=== PATIENT | female | born 1985 | race Caucasian/White ===

== ENCOUNTER 2016-06-09 09:08 | Emergency (ER) | payer OTHER ==
--- NOTE | 2016-06-09 09:54 | ED ---
General Adult HPI - General Chief complaint: Recheck/Abnormal Lab/Rx Stated complaint: post op drainage Time Seen by Provider: 06/09/16 09:31 Source: patient, RN notes reviewed Mode of arrival: ambulatory Limitations: no limitations - History of Present Illness Initial comments: 30-year-old female presenting emergency department with chief complaint of drainage from her section. Patient states that she noticed it yesterday. Patient states there is mild redness. Patient denies fever, chills , increased thumb pain. Patient has a nausea vomiting. Patient states that she was on Keflex stopped a few days ago which she was taken it for a UTI. Patient states her UTI was resistant so they called her in the new antibiotic though she has not received it. Patient states she is most receive a today. Patient denies any other complaints at this time. - Related Data Home Medications Medication Instructions Recorded Confirmed Mycophenolate Mofetil [Cellcept] 1,500 mg PO BID 01/31/14 03/11/15 predniSONE 20 mg PO DAILY 01/31/14 03/11/15 Doxycycline [Vibramycin] 50 mg PO Q12HR 03/11/15 03/11/15 Previous Rx's Medication Instructions Recorded Amoxicillin/Potassium Clav 1 each PO Q12HR #20 tab 03/11/15 [Augmentin 875-125 Tablet] Clindamycin HCl 300 mg PO Q6HR #40 cap 06/09/16 Allergies Allergy/AdvReac Type Severity Reaction Status Date / Time ciprofloxacin [From Cipro] Allergy Unknown Verified 06/09/16 09:28 sulfamethoxazole Allergy Unknown Verified 06/09/16 09:28 [From Bactrim] trimethoprim [From Bactrim] Allergy Unknown Verified 06/09/16 09:28 albuterol AdvReac Severe Rapid Verified 06/09/16 09:28 Heart Rate acetaminophen [From Tylenol] AdvReac Intermediate Unknown Verified 06/09/16 09: 28 morphine AdvReac Intermediate Unknown Verified 06/09/16 09:28 Review of Systems ROS Statement: Those systems with pertinent positive or pertinent negative responses have been documented in the HPI. ROS Other: All systems not noted in ROS Statement are negative. Past Medical History Past Medical History: Deep Vein Thrombosis (DVT) Additional Past Medical History / Comment(s): itp, spleen removed 2003, lupus History of Any Multi-Drug Resistant Organisms: None Reported Past Surgical History: Section Additional Past Surgical History / Comment(s): splenectomy mar 2004 Past Anesthesia/Blood Transfusion Reactions: No Reported Reaction Past Psychological History: ADD/ADHD, Depression Additional Psychological History / Comment(s): no doctors or meds. Smoking Status: Never smoker Past Alcohol Use History: None Reported Past Drug Use History: None Reported General Exam Limitations: no limitations General appearance: alert, in no apparent distress Head exam: Present: atraumatic, normocephalic, normal inspection Respiratory exam: Present: normal lung sounds bilaterally. Absent: respiratory distress, wheezes, rales, rhonchi, stridor Cardiovascular Exam: Present: regular rate, normal rhythm, normal heart sounds. Absent: systolic murmur, diastolic murmur, rubs, gallop, clicks GI/Abdominal exam: Present: soft, normal bowel sounds, other ( incision noted to have mild redness some drainage noted no dehiscence). Absent: distended, tenderness, guarding, rebound, rigid Course Vital Signs 06/09/16 09:26 Temperature 98.6 F Pulse Rate 90 Respiratory 20 Rate Blood Pressure 139/95 O2 Sat by Pulse 98 Oximetry Medical Decision Making - Medical Decision Making 30-year-old female presented for possible infection of section. Patient does have mild cellulitis. Patient be given clindamycin. Patient states she was taking Keflex but stopped it. She states symptoms started after stopping Keflex. Return parameters were discussed. Disposition Clinical Impression: section wound complication, Cellulitis Disposition: HOME SELF-CARE Condition: Stable Instructions: Cellulitis (ED) Additional Instructions: Please return to the Emergency Department if symptoms worsen or any other concerns. Prescriptions: Clindamycin HCl 300 mg PO Q6HR #40 cap Referrals: Fransico Albright DO [Primary Care Provider] - 1-2 days Time of Disposition: 09:53
[2016-06-09 10:12] VITALS: BP 115/67; PULSE 95; RESP 15; TEMP 97.2
== END 2016-06-09 10:14 | disposition home or self-care (01) ==
LOC: EC 09:08
DX: O86.0 Infection of obstetric surgical wound (principal); L03.311 Cellulitis of abdominal wall; Z88.2 Allergy status to sulfonamides; Z88.6 Allergy status to analgesic agent; Z88.5 Allergy status to narcotic agent; Z88.1 Allergy status to other antibiotic agents; Z79.52 Long term (current) use of systemic steroids
CPT/HCPCS: 99283

== ENCOUNTER → 2017-01-24 | Outpatient (CLI) | payer OTHER ==
[2017-01-24 12:39] LABS: ALT 33 U/L (9-52); AST 29 U/L (14-36); Alkaline Phosphatase 86 U/L (38-126); Anion Gap 10 mmol/L; Blood Urea Nitrogen 12 mg/dL (7-17); Calcium 9.1 mg/dL (8.4-10.2); Carbon Dioxide 23 mmol/L (22-30); Chloride 106 mmol/L (98-107); Cholesterol 174 mg/dL (<200); Glucose 79 mg/dL (74-99); HDL Cholesterol 41 mg/dL (40-60); Non-African American GFR(MDRD) >60 (>60 ml/min/1.73 sqM); Potassium 4.5 mmol/L (3.5-5.1); Sodium 139 mmol/L (137-145); Total Bilirubin 0.4 mg/dL (0.2-1.3); Total Protein 7.8 g/dL (6.3-8.2)
[2017-01-24 13:04] LABS: Basophils # (A) 0.1 k/uL (0-0.2); Basophils % (A) 1 %; CH 26.8; CHCM 29.3; Eosinophils # (A) 0.1 k/uL (0-0.7); Eosinophils % (A) 2 %; HCT 49.8 % (34.0-46.0); HGB 14.9 gm/dL (11.4-16.0); Hypochromasia Marked; Luc # (Auto) 0.12; Luc % (Auto) 2; Lymphocytes # (A) 2.2 k/uL (1.0-4.8); Lymphocytes % (A) 34 %; MCH 27.4 pg (25.0-35.0); MCHC 29.8 g/dL (31.0-37.0); Mean Platelet Volume 7.7; Monocytes # (A) 0.4 k/uL (0-1.0); Monocytes % (A) 7 %; Neutrophils # (A) 3.6 k/uL (1.3-7.7); Neutrophils % (A) 55 %; RBC 5.42 m/uL (3.80-5.40); WBC 6.5 k/uL (3.8-10.6)
[2017-01-24 20:49] LABS: ANA w/Reflex to Titer POSITIVE (NEGATIVE)
== END | disposition home or self-care (01) ==
LOC: LABWHC1 11:42
PROVIDERS: ATTEND Family Medicine
DX: M32.10 Systemic lupus erythematosus, organ or system involvement unspecified (principal); E78.2 Mixed hyperlipidemia
CPT/HCPCS: 36415; 80053; 80061; 84443; 85025; 86038; 86039

== ENCOUNTER → 2018-01-14 | Outpatient (CLI) | payer OTHER ==
--- NOTE | 2018-01-14 13:16 | XR ---
Right shoulder HISTORY: Trauma and pain 3 views of the right shoulder Question some slight superior displacement of the distal clavicle relation to the acromion. Right rubi g apex as visualized is normal. Bone mineralization is normal. IMPRESSION: No fracture. Correlate for acromioclavicular separation.
--- NOTE | 2018-01-14 13:18 | XR ---
Thoracic spine HISTORY: Trauma and pain 3 views of the thoracic spine Thoracic vertebral bodies show preserved height, alignment, and bone mineralization. There is multile enzo spondylosis. Mild spinal curvature could be positional. Disc spaces are maintained. Surgical clip s present in the left upper quadrant. IMPRESSION: No acute fracture or subluxation.
--- NOTE | 2018-01-14 13:20 | XR ---
Cervical spine HISTORY: Trauma and pain 5 views of the cervical spine, correlation thoracic spine same date There is no evident foraminal encroachment. Cervical vertebral bodies show preserved height, alignmen t, and bone mineralization. Disc spaces are maintained. Loss of normal cervical lordosis could be due to muscle spasm. IMPRESSION: No acute fracture or subluxation.
--- NOTE | 2018-01-14 13:22 | XR ---
Right humerus HISTORY: Trauma and pain 2 views of the right humerus on 4 images correlated to right shoulder same date Bone mineralization, joint spaces and alignment are maintained. Question superior displacement of the distal clavicle in relation to the acromion. Right lung apex as visualized is normal. IMPRESSION: No fracture or dislocation is evident, additional findings above.
--- NOTE | 2018-01-14 13:23 | XR ---
Right wrist HISTORY: Trauma and pain 4 views of the right wrist Bone mineralization, joint spaces and alignment are maintained. Suspect some soft tissue swelling is present. IMPRESSION: No fracture or dislocation.
== END | disposition home or self-care (01) ==
LOC: LABWHC1 10:52
PROVIDERS: ATTEND Emergency Medicine
DX: S13.4XXA Sprain of ligaments of cervical spine, initial encounter (principal); S43.401A Unspecified sprain of right shoulder joint, initial encounter; S50.02XA Contusion of left elbow, initial encounter; S63.501A Unspecified sprain of right wrist, initial encounter; S23.3XXA Sprain of ligaments of thoracic spine, initial encounter; N91.2 Amenorrhea, unspecified
CPT/HCPCS: 72050; 72072; 81025

== ENCOUNTER → 2018-01-20 | Outpatient (CLI) | payer OTHER ==
--- NOTE | 2018-01-20 12:18 | XR ---
EXAMINATION TYPE: XR chest 2V DATE OF EXAM: 01/20/2018 COMPARISON: Chest x-ray April 01, 2017 HISTORY: Fall injury one week ago with pain. TECHNIQUE: Frontal and lateral views of the chest are obtained. FINDINGS: There is no focal air space opacity, pleural effusion, or pneumothorax seen. The cardiac silhouette size is stable and upper limits of normal. Suspect old fracture anterolateral left fifth r ib unchanged from prior. Surgical clips left upper quadrant are redemonstrated. IMPRESSION: No acute cardiopulmonary process. No significant change from prior.
== END | disposition home or self-care (01) ==
LOC: RADXRMAIN 11:59
PROVIDERS: ATTEND Emergency Medicine
DX: R07.89 Other chest pain (principal); S29.9XXD Unspecified injury of thorax, subsequent encounter
CPT/HCPCS: 71046

== ENCOUNTER → 2018-02-13 | Outpatient (CLI) | payer OTHER ==
--- NOTE | 2018-02-13 23:39 | MR ---
EXAMINATION TYPE: MR shoulder RT wo con DATE OF EXAM: 02/13/2018 COMPARISON: None HISTORY: Pain in right shoulder TECHNIQUE: Multiplanar, multisequence imaging of the right shoulder is performed without contrast. FINDINGS: There is slight thickening and increased signal in the supraspinatus tendon over the humeral head and greater tuberosity of the humerus. I see no subacromial impingement. There is mild shoulder joint ef fusion. Biceps tendon appears intact. Subscapularis tendon is intact. There is no evidence of a fracture. The glenoid jolene appear intact. I see no bony destructive process. IMPRESSION: Mild shoulder joint effusion. Mild edema in the supraspinatus tendon consistent with tendinitis. No f ull-thickness tear seen. No retraction.
== END ==
LOC: RADMRIMAIN 07:24
PROVIDERS: ATTEND Family Medicine
DX: M25.411 Effusion, right shoulder (principal)

== ENCOUNTER 2018-09-24 08:13 | Emergency (ER) | payer OTHER ==
[2018-09-24 08:18] VITALS: BP 139/95; PULSE 77; RESP 18; TEMP 97.9
[2018-09-24] MEDS ORDERED: ACET/COD 300 MG/30 MG STARTER PACK 6 TAB BTL PO STA (08:46)
[2018-09-24] MEDS ORDERED: CLINDAMYCIN 150 MG CAP PO STA (08:46)
--- NOTE | 2018-09-24 08:46 | ED ---
ENT HPI - General Chief complaint: Dental/Oral Stated complaint: dental pain Time Seen by Provider: 09/24/18 08:20 Source: patient, RN notes reviewed, old records reviewed Mode of arrival: ambulatory Limitations: no limitations - History of Present Illness Initial comments: Patient is a 33-year-old female presents emergency department today for evaluati on of left-sided lower dental pain. Patient reports that she has history of poor dentition. She states she started to develop pain on . She went to urgent care and was started on Pen-Vee K on Saturday. She's been taking the antibiotics at that time. Patient states that she's continued have some pain and pain radiating down to her jaw which seems more severe than it was in the past. Patient states that she does not have a dentist at this time. She has a history of lupus, history of splenectomy. She denies any fevers or chills. She denies any difficulty breathing. - Related Data Home Medications Medication Instructions Recorded Confirmed Ibuprofen [Motrin Ib] 400 - 600 mg PO Q6H PRN 09/24/18 09/24/18 Previous Rx's Medication Instructions Recorded Amoxicillin/Potassium Clav 1 tab PO Q12HR #20 tab 04/01/17 [Augmentin 875-125 Tablet] Clindamycin [Cleocin] 450 mg PO TID 7 Days capsule 09/24/18 Allergies Allergy/AdvReac Type Severity Reaction Status Date / Time ciprofloxacin [From Cipro] Allergy Unknown Verified 09/24/18 08:33 sulfamethoxazole Allergy Unknown Verified 09/24/18 08:33 [From Bactrim] trimethoprim [From Bactrim] Allergy Unknown Verified 09/24/18 08:33 albuterol AdvReac Severe Rapid Verified 09/24/18 08:33 Heart Rate acetaminophen [From Tylenol] AdvReac Intermediate Unknown Verified 09/24/18 08:33 morphine AdvReac Intermediate Unknown Verified 09/24/18 08:33 Review of Systems ROS Statement: Those systems with pertinent positive or pertinent negative responses have been documented in the HPI. ROS Other: All systems not noted in ROS Statement are negative. Past Medical History Past Medical History: Deep Vein Thrombosis (DVT) Additional Past Medical History / Comment(s): itp, spleen removed 2003, lupus History of Any Multi-Drug Resistant Organisms: None Reported Past Surgical History: Section Additional Past Surgical History / Comment(s): splenectomy mar 2004 Past Anesthesia/Blood Transfusion Reactions: No Reported Reaction Past Psychological History: ADD/ADHD, Depression Smoking Status: Never smoker Past Alcohol Use History: None Reported Past Drug Use History: None Reported General Exam - General Exam Comments Initial Comments: 33-year-old female. Alert and oriented 3. No significant distress. Limitations: no limitations General appearance: alert, in no apparent distress Head exam: Present: atraumatic, normocephalic, normal inspection Eye exam: Present: normal appearance, PERRL, EOMI. Absent: scleral icterus, conjunctival injection, periorbital swelling ENT exam: Present: normal exam, mucous membranes moist. Absent: normal oropharynx (Poor dentition. Patient has some minimal left cheek lower jaw swelling.) Neck exam: Present: normal inspection. Absent: tenderness, meningismus, lymphadenopathy Respiratory exam: Present: normal lung sounds bilaterally. Absent: respiratory distress, wheezes, rales, rhonchi, stridor Cardiovascular Exam: Present: regular rate, normal rhythm, normal heart sounds. Absent: systolic murmur, diastolic murmur, rubs, gallop, clicks GI/Abdominal exam: Present: soft, normal bowel sounds. Absent: distended, tenderness, guarding, rebound, rigid Extremities exam: Present: normal inspection, full ROM, normal capillary refill. Absent: tenderness, pedal edema, joint swelling, calf tenderness Back exam: Present: normal inspection Neurological exam: Present: alert, oriented X3, CN II-XII intact Psychiatric exam: Present: normal affect, normal mood Skin exam: Present: warm, dry, intact, normal color. Absent: rash Course Vital Signs 09/24/18 08:15 Temperature 97.9 F Pulse Rate 77 Respiratory 18 Rate Blood Pressure 139/95 O2 Sat by Pulse 95 Oximetry Medical Decision Making - Medical Decision Making Patient's a 33-year-old female presents emergency department today for evaluation for dental pain. Patient has evidence of poor dentition, she is some swelling of the left side of her jaw and cheek. She was no tongue protrusion, denies any fevers or chills. She has been on penicillin for the past 3 days. I discussed this time switching patient's antibiotic to clindamycin. I also discussed case with Dr. Valadez who is aware of patient's history of sple nectomy, recommends just changing the antibiotic at this time. Patient will be given dose of clindamycin emergency department. Discussed following up with dental clinic. Questions were answered. Disposition Clinical Impression: Dental abscess Disposition: HOME SELF-CARE Condition: Good Instructions (If sedation given, give patient instructions): Dental Abscess (ED) Additional Instructions: [facility] [address] [place] [address] [phone] (existing clients only) For new clients: [phone] 1st consult: $50 (includes Xrays) Usually 30% less then private dentist for visits after. [employer] Have to pay $50 for Xrays and rest is covered. [phone] Prescriptions: Clindamycin [Cleocin] 450 mg PO TID 7 Days capsule Is patient prescribed a controlled substance at d/c from ED?: No Referrals: Fransico Albright DO [Primary Care Provider] - 1-2 days Time of Disposition: 08:45
== END 2018-09-24 08:57 | disposition home or self-care (01) ==
LOC: EC 08:13
DX: K04.7 Periapical abscess without sinus (principal); Z90.49 Acquired absence of other specified parts of digestive tract; Z86.718 Personal history of other venous thrombosis and embolism; Z88.1 Allergy status to other antibiotic agents; Z88.2 Allergy status to sulfonamides; Z88.5 Allergy status to narcotic agent; Z88.8 Allergy status to other drugs, medicaments and biological substances
CPT/HCPCS: 99283

== ENCOUNTER → 2019-01-21 | Outpatient (CLI) | payer OTHER ==
--- NOTE | 2019-01-21 15:50 | XR ---
Lumbosacral spine HISTORY: Chronic low back pain 5 views of lumbosacral spine correlated to previous exam 02/01/2014 There is no evident spondylolysis spinal listhesis. Lumbar vertebral bodies show preserved height. Rolan ne mineralization is maintained. Disc spaces are stable. Surgical clips present in the left upper roc drant. Mild spinal curvature could be positional. IMPRESSION: Spinal curvature could be positional. Postop change.
== END | disposition home or self-care (01) ==
LOC: RADXRYALE 14:39
PROVIDERS: ATTEND Physician Assistant Medical
DX: M54.5 Low back pain (principal); Z98.890 Other specified postprocedural states
CPT/HCPCS: 72110

== ENCOUNTER → 2019-02-13 | Outpatient (CLI) | payer OTHER ==
--- NOTE | 2019-02-13 09:26 | US ---
EXAMINATION TYPE: US abdomen complete DATE OF EXAM: 02/13/2019 COMPARISON: NONE CLINICAL HISTORY: R10.30 lower abd pain R10.2 pelvic pain. Patient has Lupus. Hx of splenectomy. EXAM MEASUREMENTS: Liver Length: 13.6 cm Gallbladder Wall: 0.2 cm CBD: 0.2 cm Spleen: Surgically absent Right Kidney: 10.8 x 4.5 x 4.8 cm Left Kidney: 10.7 x 5.5 x 5.1 cm Morbidly obese patient. Study very limited and technically difficult. Pancreas: partially obscured by bowel gas Liver: unable to well penetrate, very limited visualization Gallbladder: wnl as seen, very limited visualization Evidence for sonographic Chaudhari's sign:no CBD: wnl Spleen: wnl Right Kidney: Inferior pole obscured by bowel gas, very limited visualization Left Kidney: Portion of superior and inferior pole obscured by bowel gas Upper IVC: dilated Abd Aorta: bifurcation obscured by bowel gas There is no evidence of cholelithiasis. Common bile duct is unremarkable. The visualized portions o f the pancreas are homogenous. The spleen is surgically absent. Kidneys are symmetric and free of hy dronephrosis. IMPRESSION: 1. Exam is limited secondary to patient body habitus with suboptimal visualization throughout, most n otably within the liver and pancreas. No sonographic evidence of cholelithiasis nor acute cholecystit is. Common the liver is hyperechoic and most commonly relates to hepatic steatosis. Correlate with li marible function tests. 2. Dilated inferior vena cava, correlate for fluid overload or right heart failure.
--- NOTE | 2019-02-13 09:46 | US ---
EXAMINATION TYPE: US pelvic complete DATE OF EXAM: 02/13/2019 COMPARISON: NONE CLINICAL HISTORY: R10.30 lower abd pain R10.2 pelvic pain. TECHNIQUE: Transabdominal (TA). Date of LMP: 02/08/19 EXAM MEASUREMENTS: Uterus: 7.7 x 2.8 x 3.6 cm Endometrial Stripe: 0.4 cm Right Ovary: 2.8 x 1.7 x 2.1 cm Left Ovary: 3.4 x 3.4 x 2.1 cm Morbidly obese patient. This slightly limits examination. 1. Uterus: Anteverted wnl 2. Endometrium: wnl 3. Right Ovary: wnl 4. Left Ovary: wnl 5. Bilateral Adnexa: wnl 6. Posterior cul-de-sac: wnl IMPRESSION: Unremarkable pelvic ultrasound. No endometrial thickening nor ovarian mass seen.
== END ==
LOC: RADUSWWP 07:48
PROVIDERS: ATTEND Family Medicine
DX: R10.30 Lower abdominal pain, unspecified (principal); R10.2 Pelvic and perineal pain
CPT/HCPCS: 76700; 76856

== ENCOUNTER 2019-05-21 07:51 | Emergency (ER) | payer OTHER ==
[2019-05-21 07:59] VITALS: BP 138/93; PULSE 64; TEMP 97.7
[2019-05-21] MEDS ORDERED: KETOROLAC 60 MG/2 ML VIAL IM STA (08:22)
[2019-05-21] MEDS ORDERED: CYCLOBENZAPRINE 10MG STARTER 3 TAB BTL PO STA (08:22)
--- NOTE | 2019-05-21 08:39 | XR ---
Left shoulder HISTORY: Left shoulder pain 3 views of the left shoulder Bone mineralization, joint spaces and alignment are maintained. No fracture or dislocation. IMPRESSION: Normal left shoulder.
--- NOTE | 2019-05-21 08:39 | XR ---
Cervical spine HISTORY: Left-sided neck strain 5 views cervical spine, correlation to previous exam 01/14/2018 Cervical vertebral bodies show preserved height, alignment, and bone mineralization. Disc spaces and prevertebral soft tissues are normal. No evident foraminal encroachment. IMPRESSION: Stable exam, no acute abnormality.
--- NOTE | 2019-05-21 08:47 | ED ---
Neck Injury/Pain HPI - General Chief Complaint: Neck Pain/Injury Stated Complaint: [facility] - neck/back pain Time Seen by Provider: 05/21/19 08:01 Mode of arrival: ambulatory Limitations: no limitations - History of Present Illness Initial Comments: [id number]-year-old female presenting today for chief complaint of dizziness, dark spots in vision bilaterally, nausea. Patient states that she has had dizziness especially with standing up or head movement. She states she feels as though the room is spinning. Patient denies feeling like she is going to pass out. Patient denies any chest pain or shortness of breath. Denies vision loss, curtaining, flashes of light or head trauma. Denies hearing loss tinnitus, posterior or symptoms or ear pain. Lower extremity swelling denies Denies cardiac history. Patient states this began 05/17/19, evaluated 05/19 at [facility] where plain CT wo contrast obtained (-). Labs unremarkable. EKG no acute findings. Patient remaining ROS (-). Upon arrival she appears well no acute distress. - Related Data Home Medications Medication Instructions Recorded Confirmed Ibuprofen [Motrin Ib] 400 - 600 mg PO Q6H PRN 09/24/18 09/24/18 Previous Rx's Medication Instructions Recorded Amoxicillin/Potassium Clav 1 tab PO Q12HR #20 tab 04/01/17 [Augmentin 875-125 Tablet] Clindamycin [Cleocin] 450 mg PO TID 7 Days capsule 09/24/18 Allergies Allergy/AdvReac Type Severity Reaction Status Date / Time ciprofloxacin [From Cipro] Allergy Unknown Verified 05/21/19 07:59 sulfamethoxazole Allergy Unknown Verified 05/21/19 07:59 [From Bactrim] trimethoprim [From Bactrim] Allergy Unknown Verified 05/21/19 07:59 albuterol AdvReac Severe Rapid Verified 05/21/19 07:59 Heart Rate acetaminophen [From Tylenol] AdvReac Intermediate Unknown Verified 05/21/19 07:59 morphine AdvReac Intermediate Unknown Verified 05/21/19 07:59 Review of Systems ROS Statement: Those systems with pertinent positive or pertinent negative responses have been documented in the HPI. ROS Other: All systems not noted in ROS Statement are negative. Past Medical History Past Medical History: Deep Vein Thrombosis (DVT) Additional Past Medical History / Comment(s): itp, spleen removed 2003, lupus History of Any Multi-Drug Resistant Organisms: None Reported Past Surgical History: Section Additional Past Surgical History / Comment(s): splenectomy mar 2004 Past Anesthesia/Blood Transfusion Reactions: No Reported Reaction Past Psychological History: ADD/ADHD, Anxiety, Depression Smoking Status: Never smoker Past Alcohol Use History: None Reported Past Drug Use History: None Reported General Exam - General Exam Comments Initial Comments: General: The patient is awake and alert, in no distress Eye: +3 mm pupils are equal, round and reactive to light, extra-ocular movements are intact. No nystagmus. There is normal conjunctiva bilaterally. No signs of icterus. No photophobia Ears, nose, mouth and throat: There are moist mucous membranes and no oral lesions. Oropharynx was not erythematous there is no tonsillar enlargement exudates or lesions. Uvula midline. Tympanic membranes are not erythematous or is no effusions bulging or retraction. No tenderness to palpation of the mastoid. No anterior cervical lymphadenopathy. Rhinorrhea, clear and bilateral nares. No tripoding, no drooling. Neck: The neck is supple, there is no tenderness or JVD. No nuchal rigidity Cardiovascular: There is a regular rate and rhythm. No murmur, rub or gallop is appreciated. Respiratory: Lungs are clear to auscultation, respirations are non-labored, breath sounds are equal. No wheezes, stridor, rales, or rhonchi. No retractions or abdominal breathing. Gastrointestinal: Soft, non-distended, non-tender abdomen without masses or organomegaly noted. There is no rebound or guarding present. Bowel sounds are unremarkable. Musculoskeletal: Normal ROM, no tenderness. Strength 5/5. Sensation intact. Radial pulses equal bilaterally 2+. Neurological: A&O x 3. CN II-XII intact, There are no obvious motor or sensory deficits. Coordination appears grossly intact. Speech appears normal, no muffling. Finger to nose, heel to call smooth and coordinated. gait without ataxia. Skin: Skin is warm and dry and no rashes or lesions are noted. No extremity edema Psychiatric: Cooperative Limitations: no limitations Course Vital Signs 05/21/19 05/21/19 07:56 08:58 Temperature 97.7 F Pulse Rate 64 Respiratory 19 20 Rate Blood Pressure 138/93 O2 Sat by Pulse 100 Oximetry Medical Decision Making - Medical Decision Making 33-year-old female presenting for dizziness. No nystagmus. Patient has no chest pain or shortness of breath. Chest x-ray no acute findings. EKG no acute findings. Troponin negative. Patient has no leukocytosis no epigastric symptoms tinnitus patient describes the pain sensation of the room spinning increases with standing up rotation of the head quickly. Patient had minimal improvement and meclizine she episode of vomiting secondary to the dizziness in the emergency department. This is patient's second emergency department visit with intractable with no improvement after medications. The patient for neurology evaluation. CT angiogram was obtained prior to admission revealing no acute process or abnormalities noted of the posterior circulation. I discussed the case in detail by attending provider Dr. Arreola who spoke with Dr Quach who was agreeable to admission neurology on consult patient is agreeable to admission - EKG Data EKG Comments: Ventricular rate 76 bpm, NH interval 150 ms, QRS duration 92ms, QTC 364/409 ms. Normal sinus normal EKG no ST elevation or depression. No evidence of the delta wave or Brugada syndrome. Disposition Clinical Impression: Neck muscle strain, Left shoulder pain Disposition: HOME SELF-CARE Condition: Good Instructions (If sedation given, give patient instructions): Cervical Strain (ED), R.I.C.E. Treatment (ED) Additional Instructions: Please use medication as discussed. Please follow-up with family doctor in the next 2 days. Please return to emergency room if the symptoms increase or worsen or for any other concerns. Is patient prescribed a controlled substance at d/c from ED?: No Referrals: Fransico Albright DO [Primary Care Provider] - 1-2 days Time of Disposition: 08:47
[2019-05-21 08:59] VITALS: RESP 20
== END 2019-05-21 08:58 | disposition home or self-care (01) ==
LOC: EC 07:51
DX: S16.1XXA Strain of muscle, fascia and tendon at neck level, initial encounter (principal); M25.512 Pain in left shoulder; R42 Dizziness and giddiness; R11.2 Nausea with vomiting, unspecified; Z88.1 Allergy status to other antibiotic agents; Z88.2 Allergy status to sulfonamides; Z88.5 Allergy status to narcotic agent; Z88.6 Allergy status to analgesic agent; Z88.8 Allergy status to other drugs, medicaments and biological substances; W20.8XXA Other cause of strike by thrown, projected or falling object, initial encounter; Y93.89 Activity, other specified; Y92.69 Other specified industrial and construction area as the place of occurrence of the external cause; Y99.0 Civilian activity done for income or pay
CPT/HCPCS: 72050; 73030; 99283; 96372; J1885

== ENCOUNTER → 2019-12-17 | Outpatient (CLI) | payer OTHER ==
[2019-12-17 10:41] LABS: Basophils % (A) 0 %; Eosinophils % (A) 0 %; HCT 44.6 % (34.0-46.0); HGB 13.5 gm/dL (11.4-16.0); Hypochromasia Slight; Lymphocytes # (A) 3.2 k/uL (1.0-4.8); Lymphocytes % (A) 31 %; MCH 27.5 pg (25.0-35.0); MCHC 30.4 g/dL (31.0-37.0); MCV 90.4 fL (80.0-100.0); Mean Platelet Volume 9.9; Monocytes # (A) 0.6 k/uL (0-1.0); Monocytes % (A) 6 %; Neutrophils # (A) 6.4 k/uL (1.3-7.7); Neutrophils % (A) 62 %; Platelet Count 259 k/uL (150-450); RBC 4.93 m/uL (3.80-5.40); RDW 13.4 % (11.5-15.5); WBC 10.4 k/uL (3.8-10.6)
[2019-12-17 16:27] LABS: African American GFR (CKD) 112.3 (60.0-200.0); Albumin 4.1 g/dL (3.80-4.90); Albumin/Globulin Ratio 1.52 (1.60-3.17); Anion Gap 12.3 mmol/L (4.00-12.00); Calcium 9.1 mg/dL (8.7-10.3); Carbon Dioxide 25.7 mmol/L (21.6-31.8); Globulin 2.7 g/dL (1.6-3.3); Non-African American GFR(CKD) 96.9 (60.0-200.0); Potassium 4.6 mmol/L (3.5-5.5); Total Bilirubin 0.2 mg/dL (0.3-1.2); Total Protein 6.8 g/dL (6.2-8.2)
[2019-12-17 17:07] LABS: Erythrocyte Sedimentation Rate 14 mm/Hr (0-20)
[2019-12-17 17:09] LABS: DNA Double-Stranded NEGATIVE (NEGATIVE)
== END | disposition home or self-care (01) ==
LOC: LABWHC1 08:17
PROVIDERS: ATTEND Physician Assistant Medical
DX: M32.9 Systemic lupus erythematosus, unspecified (principal); M25.50 Pain in unspecified joint; R60.9 Edema, unspecified
CPT/HCPCS: 36415; 80053; 85025; 85652; 86160; 86225

== ENCOUNTER 2020-06-24 08:00 | Emergency (ER) | payer OTHER ==
[2020-06-24 08:05] VITALS: PULSE 97; RESP 18; TEMP 97.7
[2020-06-24] MEDS ORDERED: PENICILLIN G BENZATHINE 1,200,000 UNIT/2 ML SYRINGE IM STA (08:16)
[2020-06-24] MEDS ORDERED: IBUPROFEN 600 MG TAB PO STA (08:20)
--- NOTE | 2020-06-24 08:20 | ED ---
General Adult HPI - General Chief complaint: Dental/Oral Stated complaint: Dental pain Time Seen by Provider: 06/24/20 08:08 Source: patient, RN notes reviewed Mode of arrival: ambulatory Limitations: no limitations - History of Present Illness Initial comments: Patient is a pleasant 35-year-old female presenting to the emergency Department with complaints of dental pain. Onset of symptoms was 2 days ago. Patient states she did see a emergency dentist yesterday and was started on antibiotics, amoxicillin. Patient has noticed some swelling today. No fever. No dyspnea. Patient is tolerating oral intake. Patient does have history of chronic poor dentition and dental problems. Patient requests work note. - Related Data Home Medications Medication Instructions Recorded Confirmed Ibuprofen [Motrin Ib] 400 - 600 mg PO Q6H PRN 09/24/18 09/24/18 Previous Rx's Medication Instructions Recorded Amoxicillin/Potassium Clav 1 tab PO Q12HR #20 tab 04/01/17 [Augmentin 875-125 Tablet] Clindamycin [Cleocin] 450 mg PO TID 7 Days capsule 09/24/18 Allergies Allergy/AdvReac Type Severity Reaction Status Date / Time ciprofloxacin [From Cipro] Allergy Unknown Verified 06/24/20 08:05 sulfamethoxazole Allergy Unknown Verified 06/24/20 08:05 [From Bactrim] trimethoprim [From Bactrim] Allergy Unknown Verified 06/24/20 08:05 albuterol AdvReac Severe Rapid Verified 06/24/20 08:05 Heart Rate acetaminophen [From Tylenol] AdvReac Intermediate Unknown Verified 06/24/20 08:05 morphine AdvReac Intermediate Unknown Verified 06/24/20 08:05 Review of Systems ROS Statement: Those systems with pertinent positive or pertinent negative responses have been documented in the HPI. ROS Other: All systems not noted in ROS Statement are negative. Constitutional: Denies: fever Eyes: Denies: eye pain ENT: Reports: as per HPI, dental pain. Denies: ear pain Respiratory: Denies: cough Cardiovascular: Denies: palpitations Endocrine: Denies: fatigue Gastrointestinal: Denies: abdominal pain Genitourinary: Denies: dysuria Musculoskeletal: Denies: back pain Skin: Denies: rash Past Medical History Past Medical History: Deep Vein Thrombosis (DVT) Additional Past Medical History / Comment(s): itp, spleen removed 2003, lupus History of Any Multi-Drug Resistant Organisms: None Reported Past Surgical History: Section Additional Past Surgical History / Comment(s): splenectomy mar 2004 Past Anesthesia/Blood Transfusion Reactions: No Reported Reaction Past Psychological History: ADD/ADHD, Anxiety, Depression Smoking Status: Never smoker Past Alcohol Use History: None Reported Past Drug Use History: None Reported General Exam Limitations: no limitations General appearance: alert, in no apparent distress Head exam: Present: normocephalic Eye exam: Present: normal appearance, PERRL ENT exam: Present: other (Poor dentition. Multiple missing teeth. No drainable abscess seen. Mild swelling right maxillary region.) Neck exam: Present: normal inspection Respiratory exam: Present: normal lung sounds bilaterally Cardiovascular Exam: Present: regular rate, normal rhythm Extremities exam: Present: normal inspection Neurological exam: Present: alert Psychiatric exam: Present: normal affect, normal mood Course Vital Signs 06/24/20 08:03 Temperature 97.7 F Pulse Rate 97 Respiratory 18 Rate Blood Pressure 182/96 O2 Sat by Pulse 99 Oximetry Disposition Clinical Impression: Dental abscess Disposition: HOME SELF-CARE Condition: Stable Instructions (If sedation given, give patient instructions): Dental Abscess (ED) Additional Instructions: Please follow-up with your dentist in the next day or 2 for recheck. Return for difficulty in breathing, not tolerating oral intake, increased swelling, fevers, worsening symptoms or other concerns. [id number] Motrin as needed. Continue antibiotics. Is patient prescribed a controlled substance at d/c from ED?: No Referrals: rFansico Albright DO [Primary Care Provider] - 1-2 days Time of Disposition: 08:18
[2020-06-24 09:12] VITALS: BP 165/89
== END 2020-06-24 08:55 | disposition home or self-care (01) ==
LOC: EC 08:00
DX: K04.7 Periapical abscess without sinus (principal); K08.89 Other specified disorders of teeth and supporting structures; Z88.1 Allergy status to other antibiotic agents; Z88.2 Allergy status to sulfonamides; Z88.5 Allergy status to narcotic agent; Z88.6 Allergy status to analgesic agent; Z88.8 Allergy status to other drugs, medicaments and biological substances; Z90.81 Acquired absence of spleen
CPT/HCPCS: 99282; 96372; J0561

== ENCOUNTER → 2020-08-24 | Outpatient (CLI) | payer OTHER ==
[2020-08-24 09:55] LABS: Appearance,Urine Clear (Clear); Bilirubin,Urine Negative (Negative); Blood,Urine Negative (Negative); Color,Urine Light Yellow; Glucose,Urine (UA) Negative (Negative); Ketones,Urine Negative (Negative); Leukocyte Esterase,Urine Negative (Negative); Nitrite,Urine Negative (Negative); PH, Urine 5.5 (5.0-8.0); Protein,Urine Negative (Negative); Specific Gravity,Urine 1.008 (1.001-1.035); Urobilinogen,Urine <2.0 mg/dL (<2.0)
[2020-08-24 11:01] LABS: Basophils # (A) 0.05 X 10*3/uL (0.00-0.10); Basophils % (A) 0.5 %; Eosinophils # (A) 0.24 X 10*3/uL (0.04-0.35); Eosinophils % (A) 2.3 %; HCT 45.3 % (37.2-46.3); HGB 13.8 g/dL (12.0-15.0); Lymphocytes # (A) 4.14 X 10*3/uL (0.90-5.00); Lymphocytes % (A) 40.2 %; MCH 28.4 pg (27.0-32.0); MCHC 30.5 g/dL (32.0-37.0); MCV 93.2 fL (80.0-97.0); Mean Platelet Volume 10.7 fL (9.5-12.2); Monocytes # (A) 1.12 X 10*3/uL (0.20-1.00); Monocytes % (A) 10.9 %; Neutrophils # (A) 4.67 X 10*3/uL (1.80-7.70); Neutrophils % (A) 45.4 %; Platelet Count 332 X 10*3/uL (140-440); RBC 4.86 X 10*6/uL (4.10-5.20); RDW 14.7 % (11.5-14.5); WBC 10.29 X 10*3/uL (4.50-10.00)
[2020-08-24 12:46] LABS: African American GFR (CKD) 111.5 (60.0-200.0); Albumin 4.2 g/dL (3.80-4.90); Albumin/Globulin Ratio 1.62 (1.60-3.17); Anion Gap 8.9 mmol/L (4.00-12.00); BUN/Creat Ratio 23.75 Ratio (12.00-20.00); Calcium 9.2 mg/dL (8.7-10.3); Carbon Dioxide 27.1 mmol/L (21.6-31.8); Globulin 2.6 g/dL (1.6-3.3); Non-African American GFR(CKD) 96.2 (60.0-200.0); Total Bilirubin 0.2 mg/dL (0.2-1.2); Total Protein 6.8 g/dL (6.2-8.2)
[2020-08-24 16:05] LABS: DNA Double-Stranded NEGATIVE (NEGATIVE)
== END | disposition home or self-care (01) ==
LOC: LABWHC1 07:10
PROVIDERS: ATTEND Internal Medicine Rheumatology
DX: M32.9 Systemic lupus erythematosus, unspecified (principal)
CPT/HCPCS: 36415; 80053; 81003; 85025; 86160; 86225

== ENCOUNTER → 2020-11-29 | Outpatient (CLI) | payer OTHER ==
--- NOTE | 2020-11-29 11:35 | XR ---
EXAMINATION TYPE: XR lumbosacral spine min 4V DATE OF EXAM: 11/29/2020 Comparison: 01/21/2019 Clinical History: 35-year-old female low back pain after [id number] FALL Findings: Vertebral body heights are preserved and alignment is maintained. No pars interarticularis defect. Sl ight leftward truncal shift may be positional. Disc interspaces are maintained. Impression: 1. Leftward truncal shift may be positional or could represent muscle spasm. 2. No vertebral compression collapse or malalignment.
== END | disposition home or self-care (01) ==
LOC: RADXRYALE 10:55
PROVIDERS: ATTEND Family Medicine
DX: M54.5 Low back pain (principal)
CPT/HCPCS: 72110

== ENCOUNTER 2021-07-21 16:19 | Inpatient (IN) | payer OTHER ==
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
--- NOTE | 2021-07-21 20:57 | XR ---
EXAMINATION TYPE: XR KUB DATE OF EXAM: 07/21/2021 8:44 PM INDICATION: Patient age:Female; 36 years old; Reason for study: abdominal pain; COMPARISON: None. TECHNIQUE: One radiographic view of the abdomen was obtained. FINDINGS: Left upper quadrant surgical clips are present. The bowel gas pattern is nonspecific withou t dilated loops of small or large bowel. There is no evidence for organomegaly or pneumoperitoneum. The osseous structures are intact. No abnormal calcifications are present. Fecal material and gas ar e demonstrated throughout the colon and rectum. IMPRESSION: Nonspecific bowel gas pattern without radiographic evidence for acute process.
[2021-07-21 20:58] LABS: Basophils % (A) 0 %; Eosinophils # (A) 0.1 k/uL (0-0.7); Eosinophils % (A) 2 %; HCT 47.4 % (34.0-46.0); HGB 14.9 gm/dL (11.4-16.0); Lymphocytes % (A) 36 %; MCH 28.2 pg (25.0-35.0); MCHC 31.5 g/dL (31.0-37.0); MCV 89.5 fL (80.0-100.0); Mean Platelet Volume 8.3; Monocytes # (A) 0.5 k/uL (0-1.0); Monocytes % (A) 6 %; Neutrophils # (A) 4.5 k/uL (1.3-7.7); Neutrophils % (A) 54 %; Platelet Count 321 k/uL (150-450); RDW 13.8 % (11.5-15.5); WBC 8.3 k/uL (3.8-10.6)
[2021-07-21 21:06] LABS: Prothrombin Time 10.6 sec (9.0-12.0)
[2021-07-21 21:10] LABS: ALT 29 U/L (4-34); AST 34 U/L (14-36); African American GFR (CKD) >90 (>60 ml/min/1.73 sqM); Albumin 4.1 g/dL (3.5-5.0); Alkaline Phosphatase 78 U/L (38-126); Anion Gap 9 mmol/L; Blood Urea Nitrogen 16 mg/dL (7-17); Calcium 9.2 mg/dL (8.4-10.2); Carbon Dioxide 24 mmol/L (22-30); Chloride 106 mmol/L (98-107); Glucose 98 mg/dL (74-99); Non-African American GFR(CKD) >90 (>60 ml/min/1.73 sqM); Potassium 4.6 mmol/L (3.5-5.1); Sodium 139 mmol/L (137-145); Total Bilirubin 0.5 mg/dL (0.2-1.3); Total Protein 7.7 g/dL (6.3-8.2)
[2021-07-21 21:18] LABS: Partial Thromboplastin Time 21.6 sec (22.0-30.0)
[2021-07-21] MEDS ORDERED: NALOXONE 0.4 MG/ML 1 ML VIAL IV PRN (22:41)
[2021-07-21] MEDS ORDERED: ONDANSETRON 4 MG/2 ML VIAL IVP PRN (22:41)
--- NOTE | 2021-07-22 14:37 | CT ---
EXAMINATION TYPE: CT brain wo con DATE OF EXAM: 07/22/2021 COMPARISON: 07/21/2021 HISTORY: Intracranial bleed CT DLP: 1074.4 mGycm Automated exposure control for dose reduction was used. Ventricles have normal size. There is no mass effect or midline shift. There is no sign of intracrani al hemorrhage. The calvarium is intact. There is no evidence of cerebral edema. Skull base is intact. IMPRESSION: Negative unenhanced head CT scan. No change.
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
[2021-07-22] MEDS: traMADol 50 MG TAB PO PRN (17:50)
[2021-07-23] MEDS: traMADol 50 MG TAB PO PRN ×3 (00:12→22:23)
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
[2021-07-23] MEDS ORDERED: CITALOPRAM HYDROBROMIDE 20 MG TAB PO PRN (13:32)
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
[2021-07-24] MEDS: traMADol 50 MG TAB PO PRN ×2 (06:03→22:55)
[2021-07-24] MEDS ORDERED: LORazepam 2 MG/ML INJ IV STA (06:35)
[2021-07-24 08:11] LABS: Basophils # (A) 0.1 k/uL (0-0.2); Basophils % (A) 1 %; Eosinophils # (A) 0.1 k/uL (0-0.7); Eosinophils % (A) 2 %; HCT 49.2 % (34.0-46.0); HGB 15.2 gm/dL (11.4-16.0); Hypochromasia Slight; Lymphocytes # (A) 2.9 k/uL (1.0-4.8); Lymphocytes % (A) 36 %; MCH 28.6 pg (25.0-35.0); MCHC 30.9 g/dL (31.0-37.0); MCV 92.5 fL (80.0-100.0); Monocytes # (A) 0.5 k/uL (0-1.0); Monocytes % (A) 6 %; Neutrophils # (A) 4.4 k/uL (1.3-7.7); Neutrophils % (A) 54 %; Platelet Count 295 k/uL (150-450); RBC 5.32 m/uL (3.80-5.40); RDW 13.4 % (11.5-15.5); WBC 8.1 k/uL (3.8-10.6)
[2021-07-24] MEDS ORDERED: Acetaminophen-Codeine 300-30mg TAB PO PRN (08:34)
[2021-07-24 08:42] LABS: African American GFR (CKD) >90 (>60 ml/min/1.73 sqM); Anion Gap 7 mmol/L; Blood Urea Nitrogen 15 mg/dL (7-17); Carbon Dioxide 28 mmol/L (22-30); Chloride 104 mmol/L (98-107); Glucose 104 mg/dL (74-99); Non-African American GFR(CKD) >90 (>60 ml/min/1.73 sqM); Potassium 4.3 mmol/L (3.5-5.1); Sodium 139 mmol/L (137-145)
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
--- NOTE | 2021-07-24 15:59 | MR ---
EXAMINATION TYPE: MR brain wo/w con DATE OF EXAM: 07/24/2021 COMPARISON: CT brain from 2 days and 3 days ago. HISTORY: Headaches, possible bleed TECHNIQUE: Multiplanar, multisequence images of the brain and brainstem is performed without and with IV contras t, utilizing 15 mL intravenous Gadavist . FINDINGS: Diffusion weighted images demonstrate no evidence of a recent infarct or other diffusion ab normality. There is no extra-axial fluid collection or significant white matter signal abnormality. The ventricular system and cisternal spaces are normal in size and appearance. The brain volume is age appropriate. T2 Star weighted images show some artifact degradation, there is no convincing evide nce of significant intraparenchymal blood products. Midline structures demonstrate normal morphology. The craniocervical junction appears within normal limits. Post contrast images demonstrate no abnormal enhancement. The dural venous sinuses appear pa tent. The visualized sinuses are clear and the globes are intact. IMPRESSION: Unremarkable study.
[2021-07-25 08:12] VITALS: RESP 16
[2021-07-25] MEDS: traMADol 50 MG TAB PO PRN (11:18)
[2021-07-25 11:22] VITALS: BP 114/74; PULSE 85; TEMP 97.4
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
== END 2021-07-25 15:28 | disposition home or self-care (01) | DRG 89 ==
LOC: EC 16:19 → 3SCARD 23:34
PROVIDERS: ADMIT Hospitalist; ATTEND Hospitalist
DX: S06.0X0A Concussion without loss of consciousness, initial encounter (principal); Z68.42 Body mass index [BMI] 45.0-49.9, adult; Y99.0 Civilian activity done for income or pay; Y92.129 Unspecified place in nursing home as the place of occurrence of the external cause; M32.9 Systemic lupus erythematosus, unspecified; F41.9 Anxiety disorder, unspecified; F32.A Depression, unspecified; E66.01 Morbid (severe) obesity due to excess calories; M19.90 Unspecified osteoarthritis, unspecified site; Y04.2XXA Assault by strike against or bumped into by another person, initial encounter; F07.81 Postconcussional syndrome; Z79.899 Other long term (current) drug therapy; Z86.718 Personal history of other venous thrombosis and embolism; Z90.81 Acquired absence of spleen; Z88.1 Allergy status to other antibiotic agents; Z88.5 Allergy status to narcotic agent; Z88.2 Allergy status to sulfonamides; Z88.8 Allergy status to other drugs, medicaments and biological substances
CPT/HCPCS: 36415; 70450; 70553; 74018; 80048; 80053; 81025; 85025; 85610; 85730; 99285

== ENCOUNTER → 2021-07-27 | Outpatient (CLI) | payer OTHER ==
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
== END | disposition home or self-care (01) ==
LOC: RADUSWWP 15:11
PROVIDERS: ATTEND Emergency Medicine
DX: I82.433 Acute embolism and thrombosis of popliteal vein, bilateral (principal)
CPT/HCPCS: 93970

== ENCOUNTER → 2021-08-22 | Outpatient (CLI) | payer OTHER ==
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
== END | disposition home or self-care (01) ==
LOC: RADCTMAIN 14:14
PROVIDERS: ATTEND Emergency Medicine
DX: S19.9XXA Unspecified injury of neck, initial encounter (principal); M54.2 Cervicalgia; Y09 Assault by unspecified means
CPT/HCPCS: 72125

== ENCOUNTER → 2022-01-02 | Outpatient (CLI) | payer OTHER ==
--- NOTE | 2022-01-02 09:38 | US ---
EXAMINATION TYPE: US venous doppler duplex LE DATE OF EXAM: 01/02/2022 9:30 AM COMPARISON: US July 27 2021 CLINICAL HISTORY: I82.529 DVT. History of bilateral DVT, patient on blood thinners SIDE PERFORMED: Bilateral TECHNIQUE: The lower extremity deep venous system is examined utilizing real time linear array sonog lilo with graded compression, doppler sonography and color-flow sonography. VESSELS IMAGED: Common Femoral Vein Deep Femoral Vein Greater Saphenous Vein * Femoral Vein Popliteal Vein Small Saphenous Vein * Proximal Calf Veins (* superficial vessels) Difficult and limited study due to patient body habitus Right Leg: Appears negative for DVT Left Leg: Appears negative for DVT Grayscale, color doppler, spectral doppler imaging performed of the deep veins of the bilateral lower extremities. There is normal flow, compressibility, vascular waveforms. IMPRESSION: Suboptimal study but no ultrasound evidence for new or residual DVT in either lower extre mity.
== END | disposition home or self-care (01) ==
LOC: RADUSWWP 08:40
PROVIDERS: ATTEND Internal Medicine Hematology & Oncology
DX: I82.5Z9 Chronic embolism and thrombosis of unspecified deep veins of unspecified distal lower extremity (principal)
CPT/HCPCS: 93970

== ENCOUNTER → 2022-03-19 | Outpatient (CLI) | payer OTHER ==
[2022-03-19 18:58] LABS: ALT 21 U/L (8-44); AST 20 U/L (13-35); African American GFR (CKD) 128.5 (60.0-200.0); Albumin 4.2 g/dL (3.8-4.9); Albumin/Globulin Ratio 1.49 (1.60-3.17); Alkaline Phosphatase 80 U/L (41-126); BUN/Creat Ratio 24.05 Ratio (12.00-20.00); Calcium 9.6 mg/dL (8.7-10.3); Chloride 102 mmol/L (96-109); Globulin 2.8 g/dL (1.6-3.3); Glucose 89 mg/dL (70-110); Non-African American GFR(CKD) 110.9 (60.0-200.0); Potassium 4.5 mmol/L (3.5-5.5); Sodium 138 mmol/L (135-145); Total Bilirubin <0.15 mg/dL (0.30-1.20)
[2022-03-19 18:59] LABS: Thyroid Peroxidase Antibodies <9.0 U/mL (0.0-33.0)
== END | disposition home or self-care (01) ==
LOC: LABWHC1 13:29
PROVIDERS: ATTEND Internal Medicine Endocrinology, Diabetes & Metabolism
DX: E16.1 Other hypoglycemia (principal)
CPT/HCPCS: 36415; 80053; 82024; 82533; 83036; 84439; 84481; 86376

== ENCOUNTER → 2022-03-29 | Outpatient (CLI) | payer OTHER | END | disposition home or self-care (01) | LOC: LABWHC1 07:45 | PROVIDERS: ATTEND Internal Medicine Endocrinology, Diabetes & Metabolism | DX: E16.1 Other hypoglycemia (principal) | CPT/HCPCS: 36415; 82024; 82533 ==

== ENCOUNTER 2022-08-31 18:16 | Emergency (ER) | payer OTHER ==
[2022-08-31 19:13] VITALS: RESP 18; TEMP 98.1
[2022-08-31] MEDS ORDERED: methylPREDNISolone SOD SUCCI 125 MG/2 ML VIAL IV STA (20:55)
[2022-08-31] MEDS ORDERED: SODIUM CHLORIDE 0.9% 1,000 ML IV STA (20:57)
[2022-08-31] MEDS ORDERED: ALBUTEROL NEBULIZED 2.5 MG/3 ML INHALATION STA (20:57)
[2022-08-31 21:33] VITALS: BP 146/99
[2022-08-31 21:42] LABS: Basophils # (A) 0.1 k/uL (0-0.2); Basophils % (A) 1 %; Eosinophils # (A) 0.3 k/uL (0-0.7); Eosinophils % (A) 2 %; HGB 14.8 gm/dL (11.4-16.0); Hypochromasia Slight; Lymphocytes # (A) 4.3 k/uL (1.0-4.8); Lymphocytes % (A) 38 %; MCH 28.2 pg (25.0-35.0); MCHC 30.8 g/dL (31.0-37.0); MCV 91.3 fL (80.0-100.0); Mean Platelet Volume 8.3; Monocytes # (A) 0.8 k/uL (0-1.0); Monocytes % (A) 8 %; Neutrophils # (A) 5.6 k/uL (1.3-7.7); Neutrophils % (A) 50 %; Platelet Count 334 k/uL (150-450); RBC 5.26 m/uL (3.80-5.40); RDW 13.6 % (11.5-15.5); WBC 11.2 k/uL (3.8-10.6)
--- NOTE | 2022-08-31 21:42 | XR ---
EXAMINATION TYPE: XR chest 2V DATE OF EXAM: 08/31/2022 9:32 PM COMPARISON: Chest radiographs from 01/20/2018 TECHNIQUE: XR chest 2V Frontal and lateral views of the chest. CLINICAL INDICATION:Female, 37 years old with history of SOB; FINDINGS: Lungs/Pleura: There is no evidence of pleural effusion, focal consolidation, or pneumothorax. Pulmonary vascularity: Unremarkable. Heart/mediastinum: Cardiomediastinal silhouette is unremarkable. Musculoskeletal: No acute osseous pathology. IMPRESSION: No acute cardiopulmonary disease/process. No significant change from 01/20/2018
[2022-08-31 22:04] LABS: INR 0.9 (<1.2); Prothrombin Time 9.9 sec (9.0-12.0)
[2022-08-31 22:14] LABS: ALT 29 U/L (4-34); AST 27 U/L (14-36); African American GFR (CKD) >90 (>60 ml/min/1.73 sqM); Alkaline Phosphatase 71 U/L (38-126); Anion Gap 11 mmol/L; Blood Urea Nitrogen 19 mg/dL (7-17); Carbon Dioxide 28 mmol/L (22-30); Chloride 104 mmol/L (98-107); Glucose 81 mg/dL (74-99); Non-African American GFR(CKD) 89 (>60 ml/min/1.73 sqM); Partial Thromboplastin Time 21.2 sec (22.0-30.0); Potassium 4.2 mmol/L (3.5-5.1); Sodium 143 mmol/L (137-145); Total Bilirubin 0.4 mg/dL (0.2-1.3); Total Protein 7.4 g/dL (6.3-8.2)
--- NOTE | 2022-08-31 22:34 | ED ---
SOB HPI - General Chief Complaint: Shortness of Breath Stated Complaint: pneumonia Time Seen by Provider: 08/31/22 20:40 Source: patient Mode of arrival: ambulatory Limitations: no limitations - History of Present Illness Initial Comments: Patient is a 37 year old female who presents to the emergency department for shortness of breath. Patient has had upper respiratory symptoms for the past couple days including cough, runny nose, mild headache. Today she started to feel short of breath. She denies chest pain but states her chest feels tight. She is concerned she has pneumonia. Patient does have history of pulmonary embolism she is currently on Eliquis. She denies leg pain and swelling. No nausea or vomiting. Patient was at urgent care apparently her oxygen saturation was 95% she was sent in for further evaluation - Related Data Home Medications Medication Instructions Recorded Confirmed Ibuprofen [Motrin Ib] 800 mg PO Q6H PRN 09/24/18 07/27/21 Citalopram Hydrobromide [CeleXA] 20 mg PO DAILY PRN 07/21/21 07/27/21 traMADol HCL 50 mg PO TID PRN 07/21/21 07/27/21 Previous Rx's Medication Instructions Recorded Meclizine [Antivert] 12.5 mg PO TID PRN #12 tablet 07/25/21 Apixaban [Eliquis Starter Pack 5 - 10 mg PO DIRECTED 30 Days 07/29/21 (for VTE)] #1 each Ondansetron Odt [Zofran Odt] 4 mg PO Q8HR PRN #20 tab 07/29/21 methylPREDNISolone [Medrol Dose 4 mg PO DIRECTED #1 packet 08/31/22 Pack] Allergies Allergy/AdvReac Type Severity Reaction Status Date / Time albuterol Allergy Severe Rapid Verified 08/31/22 19:08 Heart Rate & Shortness of Breath acetaminophen [From Tylenol] AdvReac Intermediate Mood Verified 08/31/22 19:08 Swings, See comment morphine AdvReac Intermediate Mood Verified 08/31/22 19:08 Swings, See comment ciprofloxacin [From Cipro] AdvReac Reaction Verified 08/31/22 19:08 with lupus sulfamethoxazole AdvReac Reaction Verified 08/31/22 19:08 [From Bactrim] with lupus trimethoprim [From Bactrim] AdvReac Reaction Verified 05/05/23 19:08 with lupus Review of Systems ROS Statement: Those systems with pertinent positive or pertinent negative responses have been documented in the HPI. ROS Other: All systems not noted in ROS Statement are negative. Past Medical History Past Medical History: Deep Vein Thrombosis (DVT) Additional Past Medical History / Comment(s): itp, spleen removed 2003, lupus History of Any Multi-Drug Resistant Organisms: None Reported Past Surgical History: Section Additional Past Surgical History / Comment(s): splenectomy mar 2004, oral sx Past Anesthesia/Blood Transfusion Reactions: No Reported Reaction Past Psychological History: ADD/ADHD, Anxiety, Depression Smoking Status: Never smoker Past Alcohol Use History: None Reported Past Drug Use History: None Reported General Exam Limitations: no limitations General appearance: alert, in no apparent distress Head exam: Present: atraumatic, normocephalic, normal inspection Neck exam: Present: normal inspection. Absent: tenderness, meningismus, lymphadenopathy Respiratory exam: Present: wheezes (Moderate upper lung crowe). Absent: normal lung sounds bilaterally, respiratory distress, rales, rhonchi, stridor Cardiovascular Exam: Present: regular rate, normal rhythm, normal heart sounds. Absent: systolic murmur, diastolic murmur, rubs, gallop, clicks GI/Abdominal exam: Present: soft, normal bowel sounds. Absent: distended, tenderness, guarding, rebound, rigid Extremities exam: Present: normal inspection, full ROM, normal capillary refill. Absent: tenderness, calf tenderness Neurological exam: Present: alert, oriented X3, CN II-XII intact Psychiatric exam: Present: normal affect, normal mood Skin exam: Present: warm, dry, intact, normal color. Absent: rash Course Vital Signs 08/31/22 08/31/22 08/31/22 19:08 21:16 22:30 Temperature 98.1 F Pulse Rate 85 88 78 Respiratory 18 18 Rate Blood Pressure 140/81 146/99 O2 Sat by Pulse 98 98 Oximetry 08/31/22 22:39 Temperature Pulse Rate 83 Respiratory Rate Blood Pressure O2 Sat by Pulse Oximetry Medical Decision Making - Medical Decision Making EKG taken at 21:21, entered by oh Sinus rhythm, no ST segment or T-wave abnormality Ventricular rate 77, [place] interval 151, QRS duration 97, QTC 409 Was pt. sent in by a medical professional or institution (, PA, SENIOR COMMISSIONS ANALYST, urgent care, hospital, or correction...) When possible be specific @ -No Did you speak to anyone other than the patient for history (EMS, parent, family, police, friend...)? What history was obtained from this source @ -No Did you review nursing and triage notes (agree or disagree)? Why? @ -I reviewed and agree with nursing and triage notes Were old charts reviewed (outside hosp., previous admission, EMS record, old EKG, old radiological studies, urgent care reports/EKG's, correction records)? Report findings @ -No old charts were reviewed Differential Diagnosis (chest pain, altered mental status, abdominal pain women, abdominal pain men, vaginal bleeding, weakness, fever, dyspnea, syncope, headache, dizziness, GI bleed, back pain, seizure, CVA, palpatations, mental health)? @ -not applicable EKG interpreted by me (3pts min.). @ -As above X-rays interpreted by me (1pt min.). @ -Chest x-ray negative for acute process CT interpreted by me (1pt min.). @ -None done U/S interpreted by me (1pt. min.). @ -None done What testing was considered but not performed or refused? (CT, X-rays, U/S, labs)? Why? @ -None What meds were considered but not given or refused? Why? @ -None Did you discuss the management of the patient with other professionals (reynaldo pulido i.e. , PA, SENIOR COMMISSIONS ANALYST, lab, RT, psych nurse, aids social worker, ginger farmer, teacher, chief risk officer, caseworker)? Give summary @ -No Was smoking cessation discussed for >3mins.? @ -No Was critical care preformed (if so, how long)? @ -No Were there social determinants of health that impacted care today? How? (Homelessness, low income, unemployed, alcoholism, drug addiction, transportation, low edu. Level, literacy, decrease access to med. care, fdc, rehab)? @ -No Was there de-escalation of care discussed even if they declined (Discuss DNR or withdrawal of care, Hospice)? DNR status @ -No What co-morbidities impacted this encounter? (DM, HTN, Smoking, COPD, CAD, Cancer, CVA, ARF, Chemo, Hep., AIDS, mental health diagnosis, sleep apnea, morbid obesity)? @ -None Was patient admitted / discharged? Hospital course, mention meds given and route, prescriptions, significant lab abnormalities, going to OR and other pertinent info. @ -Patient presenting for shortness of breath. Patient resting comfortably no evidence of respiratory distress. No hypoxia. There is mild wheezing of the upper lung crowe. EKG reveals sinus rhythm there is no evidence of acute ischemia. Laboratory studies obtained. There is mild leukocytosis at 11.2. D- dimer and troponin are within normal limits. Chest x-ray negative for acute process. Patient observed closely she denied any hypoxic events in the emergency department. She was given breathing treatment and Solu-Medrol with improvement of wheezing. Results discussed with patient. Patient in stable medical condition for discharge. She will be discharged with Medrol Dosepak and continue breathing treatments at home. Undiagnosed new problem with uncertain prognosis? @ -No Drug Therapy requiring intensive monitoring for toxicity (Heparin, Nitro, Insulin, Cardizem)? @ -No Were any procedures done? @ -No Diagnosis/symptom? @ -Acute bronchitis Acute, or Chronic, or Acute on Chronic? @ -Acute Uncomplicated (without systemic symptoms) or Complicated (systemic symptoms)? @ -Uncomplicated Side effects of treatment? @ -No Exacerbation, Progression, or Severe Exacerbation? @ -[No] Poses a threat to life or bodily function? How? (Chest pain, [place], [place], pneumonia, PE, COPD, DKA, ARF, appy, cholecystitis, CVA, Diverticulitis, Homicidal, Suicidal, threat to staff... and all critical care pts) @ -No Dr. Espinoza is my attending - Lab Data Result diagrams: 08/31/22 21:16 08/31/22 21:16 Lab Results 08/31/22 08/31/22 08/31/22 Range/Units 21:16 21:16 21:16 WBC 11.2 H (3.8-10.6) k/uL RBC 5.26 (3.80-5.40) m/uL Hgb 14.8 (11.4-16.0) gm/dL Hct 48.0 H (34.0-46.0) % MCV 91.3 (80.0-100.0) fL MCH 28.2 (25.0-35.0) pg MCHC 30.8 L (31.0-37.0) g/dL RDW 13.6 (11.5-15.5) % Plt Count 334 (150-450) k/uL MPV 8.3 Neutrophils % 50 % Lymphocytes % 38 % Monocytes % 8 % Eosinophils % 2 % Basophils % 1 % Neutrophils # 5.6 (1.3-7.7) k/uL Lymphocytes # 4.3 (1.0-4.8) k/uL Monocytes # 0.8 (0-1.0) k/uL Eosinophils # 0.3 (0-0.7) k/uL Basophils # 0.1 (0-0.2) k/uL Hypochromasia Slight PT 9.9 (9.0-12.0) sec INR 0.9 (<1.2) APTT 21.2 L (22.0-30.0) sec D-Dimer <0.17 (<0.60) mg/L FEU Sodium 143 (137-145) mmol/L Potassium 4.2 (3.5-5.1) mmol/L Chloride 104 (98-107) mmol/L Carbon Dioxide 28 (22-30) mmol/L Anion Gap 11 mmol/L BUN 19 H (7-17) mg/dL Creatinine 0.85 (0.52-1.04) mg/dL Est GFR (CKD-EPI)AfAm >90 (>60 ml/min/1.73 sqM) Est GFR (CKD-EPI)NonAf 89 (>60 ml/min/1.73 sqM) Glucose 81 (74-99) mg/dL Calcium 9.0 (8.4-10.2) mg/dL Total Bilirubin 0.4 (0.2-1.3) mg/dL AST 27 (14-36) U/L ALT 29 (4-34) U/L Alkaline Phosphatase 71 (38-126) U/L Troponin I (0.000-0.034) ng/mL Total Protein 7.4 (6.3-8.2) g/dL Albumin 4.0 (3.5-5.0) g/dL 08/31/22 Range/Units 21:16 WBC (3.8-10.6) k/uL RBC (3.80-5.40) m/uL Hgb (11.4-16.0) gm/dL Hct (34.0-46.0) % MCV (80.0-100.0) fL MCH (25.0-35.0) pg MCHC (31.0-37.0) g/dL RDW (11.5-15.5) % Plt Count (150-450) k/uL MPV Neutrophils % % Lymphocytes % % Monocytes % % Eosinophils % % Basophils % % Neutrophils # (1.3-7.7) k/uL Lymphocytes # (1.0-4.8) k/uL Monocytes # (0-1.0) k/uL Eosinophils # (0-0.7) k/uL Basophils # (0-0.2) k/uL Hypochromasia PT (9.0-12.0) sec INR (<1.2) APTT (22.0-30.0) sec D-Dimer (<0.60) mg/L FEU Sodium (137-145) mmol/L Potassium (3.5-5.1) mmol/L Chloride (98-107) mmol/L Carbon Dioxide (22-30) mmol/L Anion Gap mmol/L BUN (7-17) mg/dL Creatinine (0.52-1.04) mg/dL Est GFR (CKD-EPI)AfAm (>60 ml/min/1.73 sqM) Est GFR (CKD-EPI)NonAf (>60 ml/min/1.73 sqM) Glucose (74-99) mg/dL Calcium (8.4-10.2) mg/dL Total Bilirubin (0.2-1.3) mg/dL AST (14-36) U/L ALT (4-34) U/L Alkaline Phosphatase (38-126) U/L Troponin I <0.012 (0.000-0.034) ng/mL Total Protein (6.3-8.2) g/dL Albumin (3.5-5.0) g/dL Disposition Clinical Impression: Acute bronchitis Disposition: HOME SELF-CARE Condition: Good Instructions (If sedation given, give patient instructions): Acute Bronchitis (ED) Additional Instructions: Continue breathing treatments and prednisone. Follow up with PCP in 1-2 days. Return to the ED if you experience new, concerning, or worsening symptoms. Prescriptions: methylPREDNISolone [Medrol Dose Pack] 4 mg PO DIRECTED #1 packet Is patient prescribed a controlled substance at d/c from ED?: No Referrals: Fransico Albright DO [Primary Care Provider] - 1-2 days
[2022-08-31 22:39] VITALS: PULSE 83
== END 2022-09-01 00:16 | disposition home or self-care (01) ==
LOC: EC 18:16
DX: J20.9 Acute bronchitis, unspecified (principal); F32.A Depression, unspecified; F41.9 Anxiety disorder, unspecified; Z79.899 Other long term (current) drug therapy; Z86.711 Personal history of pulmonary embolism; Z86.718 Personal history of other venous thrombosis and embolism; Z88.1 Allergy status to other antibiotic agents; Z88.2 Allergy status to sulfonamides; Z88.5 Allergy status to narcotic agent; Z88.6 Allergy status to analgesic agent; Z88.8 Allergy status to other drugs, medicaments and biological substances
CPT/HCPCS: 99285; 96374; 96361; 36415; 94640; 93005; 85379; 80053; 84484; 85025; 85610; 85730; 71046; J2930

== ENCOUNTER 2022-12-23 13:29 | Observation (INO) | payer OTHER ==
[2022-12-23] MEDS ORDERED: IPRATROPIUM-ALBUTEROL 3 ML NEB INHALATION STA (14:06)
[2022-12-23 14:26] LABS: Basophils # (A) 0.1 k/uL (0-0.2); Basophils % (A) 0 %; Eosinophils # (A) 0.1 k/uL (0-0.7); Eosinophils % (A) 1 %; HCT 47.2 % (34.0-46.0); HGB 15.1 gm/dL (11.4-16.0); Hypochromasia Slight; Lymphocytes # (A) 2.4 k/uL (1.0-4.8); Lymphocytes % (A) 18 %; MCHC 31.9 g/dL (31.0-37.0); MCV 90.7 fL (80.0-100.0); Mean Platelet Volume 8.2; Monocytes # (A) 0.4 k/uL (0-1.0); Monocytes % (A) 3 %; Neutrophils # (A) 10.1 k/uL (1.3-7.7); Neutrophils % (A) 77 %; Platelet Count 304 k/uL (150-450); RDW 13.9 % (11.5-15.5); WBC 13.1 k/uL (3.8-10.6)
--- NOTE | 2022-12-23 14:34 | ED ---
General Adult HPI - General Chief complaint: Shortness of Breath Stated complaint: CHEST PAIN,SOB Time Seen by Provider: 12/23/22 13:38 Source: patient Mode of arrival: ambulatory Limitations: no limitations - History of Present Illness Initial comments: Dictation was produced using [employer] dictation software. please excuse any grammatical, word or spelling errors. Chief Complaint: 37-year-old female presents to the ER for dyspnea History of Present Illness: Patient is 37-year-old female presents to the emergency room this patient is a history of lupus she takes lupus medications. Patient states that she's been symptomatic for approximately one week. States that she's been on a course of steroids however has not been improving her symptoms. Patient's history of asthma. Denies any chest pain. She has been having a nonproductive cough. No fever constitutional symptoms. The ROS documented in this emergency department record has been reviewed and confirmed by me. Those systems with pertinent positive or negative responses have been documented in the HPI. All other systems are other negative and/or noncontributory. - Related Data Home Medications Medication Instructions Recorded Confirmed Ibuprofen [Motrin Ib] 800 mg PO Q6H PRN 09/24/18 07/27/21 Citalopram Hydrobromide [CeleXA] 20 mg PO DAILY PRN 07/21/21 07/27/21 traMADol HCL 50 mg PO TID PRN 07/21/21 07/27/21 Previous Rx's Medication Instructions Recorded Meclizine [Antivert] 12.5 mg PO TID PRN #12 tablet 07/25/21 Apixaban [Eliquis Starter Pack 5 - 10 mg PO DIRECTED 30 Days 07/29/21 (for VTE)] #1 each Ondansetron Odt [Zofran Odt] 4 mg PO Q8HR PRN #20 tab 07/29/21 methylPREDNISolone [Medrol Dose 4 mg PO DIRECTED #1 packet 08/31/22 Pack] Allergies Allergy/AdvReac Type Severity Reaction Status Date / Time albuterol Allergy Severe Rapid Verified 12/23/22 13:32 Heart Rate & Shortness of Breath acetaminophen [From Tylenol] AdvReac Intermediate Mood Verified 12/23/22 13:32 Swings, See comment morphine AdvReac Intermediate Mood Verified 12/23/22 13:32 Swings, See comment ciprofloxacin [From Cipro] AdvReac Reaction Verified 12/23/22 13:32 with lupus sulfamethoxazole AdvReac Reaction Verified 12/23/22 13:32 [From Bactrim] with lupus trimethoprim [From Bactrim] AdvReac Reaction Verified 12/23/22 13:32 with lupus Review of Systems ROS Statement: Those systems with pertinent positive or pertinent negative responses have been documented in the HPI. ROS Other: All systems not noted in ROS Statement are negative. Past Medical History Past Medical History: Asthma, Deep Vein Thrombosis (DVT) Additional Past Medical History / Comment(s): itp, spleen removed 2003, lupus History of Any Multi-Drug Resistant Organisms: None Reported Past Surgical History: Section Additional Past Surgical History / Comment(s): splenectomy mar 2004, oral surgery Past Anesthesia/Blood Transfusion Reactions: No Reported Reaction Past Psychological History: ADD/ADHD, Anxiety, Depression Smoking Status: Never smoker Past Alcohol Use History: None Reported Past Drug Use History: None Reported General Exam - General Exam Comments Initial Comments: PHYSICAL EXAM: General Impression: Alert and oriented x3, not in acute distress HEENT: Normocephalic atraumatic, extra-ocular movements intact, pupils equal and reactive to light bilaterally, mucous membranes moist. Cardiovascular: Heart regular rate and rhythm Chest: Able to complete full sentences, no retractions, no tachypnea, diffuse wheezing throughout end expiratory phase Abdomen: abdomen soft, non-tender, non-distended, no organomegaly Musculoskeletal: Pulses present and equal in all extremities, no peripheral edema Motor: no focal deficits noted Neurological: CN II-XII grossly intact, no focal motor or sensory deficits noted Skin: Intact with no visualized rashes Psych: Normal affect and mood Limitations: no limitations Course Vital Signs 12/23/22 12/23/22 13:32 14:47 Temperature 98.1 F Pulse Rate 101 H 92 Respiratory 18 18 Rate Blood Pressure 116/71 129/89 O2 Sat by Pulse 95 95 Oximetry Medical Decision Making - Medical Decision Making Was pt. sent in by a medical professional or institution (, PA, SPARE HAND, urgent care, hospital, or shelter...) When possible be specific @ -No Did you speak to anyone other than the patient for history (EMS, parent, family, police, friend...)? What history was obtained from this source @ -No Did you review nursing and triage notes (agree or disagree)? Why? @ -I reviewed and agree with nursing and triage notes Were old charts reviewed (outside hosp., previous admission, EMS record, old EKG, old radiological studies, urgent care reports/EKG's, shelter records)? Report findings @ -No old charts were reviewed Differential Diagnosis (chest pain, altered mental status, abdominal pain women, abdominal pain men, vaginal bleeding, musculoskeletal, weakness, fever, dyspnea, syncope, headache, dizziness, GI bleed, back pain, seizure, CVA, palpatations, mental health)? @ -FDifferential Dyspnea: Coronary syndrome, arrhythmia, tamponade, asthma, COPD, pulmonary embolism, pneumonia, pneumothorax, pulmonary effusion, anaphylaxis, diabetic ketoacidosis, flailed chest, pulmonary contusion, diaphragmatic rupture, anemia, neuromuscular, this is not meant to be an all-inclusive list. EKG interpreted by me (3pts min.). @ -My EKG interpretation: Ventricular rate 11, sinus tachycardia,. 152, QRS 89, QTC 394. No DE prolongation, no QTC prolongation, no ST or T-wave changes noted. EKG compared to compared to 08/31/2022 showing no changes. Overall, this EKG is unremarkable X-rays interpreted by me (1pt min.). @ -Chest x-ray is unremarkable CT interpreted by me (1pt min.). @ -None done U/S interpreted by me (1pt. min.). @ -None done What testing was considered but not performed or refused? (CT, X-rays, U/S, labs)? Why? @ -None What meds were considered but not given or refused? Why? @ -None Did you discuss the management of the patient with other professionals (professionals i.e. , PA, SPARE HAND, lab, RT, psych nurse, professor of social work, education paraprofessional, teacher, parking regulation enforcement officer, wrapper caser)? Give summary @ -Cussed with hospitalist Dr. Fofana for admission Was smoking cessation discussed for >3mins.? @ -No Was critical care preformed (if so, how long)? @ -No Were there social determinants of health that impacted care today? How? (Homelessness, low income, unemployed, alcoholism, drug addiction, transpor tation, low edu. Level, literacy, decrease access to med. care, detention, rehab)? @ -No Was there de-escalation of care discussed even if they declined (Discuss DNR or withdrawal of care, Hospice)? DNR status @ -No What co-morbidities impacted this encounter? (DM, HTN, Smoking, COPD, CAD, Cancer, CVA, ARF, Chemo, Hep., AIDS, mental health diagnosis, sleep apnea, morbid obesity)? @ -None Was patient admitted / discharged? Hospital course, mention meds given and route, prescriptions, significant lab abnormalities, going to OR and other pertinent info. @ -37-year-old female presents emergency Department with persistent respiratory symptoms despite outpatient breathing treatment and steroids. Vital signs upon arrival are within acceptable limits. Patient had significant wheezing however she doesn't appear to be in significant acute distress. Laboratory evaluation unremarkable. X-rays negative. Disposition options were discussed patient she is agreeable for admission. Patient given breathing treatment and Decadron. Undiagnosed new problem with uncertain prognosis? @ -No Drug Therapy requiring intensive monitoring for toxicity (Heparin, Nitro, Insulin, Cardizem)? @ -No Were any procedures done? @ -No Diagnosis/symptom? Acute, or Chronic, or Acute on Chronic? Uncomplicated (without systemic symptoms) or Complicated (systemic symptoms)? @ -Asthma attack, failed outpatient treatment complicated lupus Side effects of treatment? @ -No Exacerbation, Progression, or Severe Exacerbation? @ -No Poses a threat to life or bodily function? How? (Chest pain, [place], [place], pneumonia, PE, COPD, DKA, ARF, appy, cholecystitis, CVA, Diverticulitis, Homicidal, Suicidal, threat to staff... and all critical care pts) @ -No - Lab Data Result diagrams: 12/23/22 14:18 12/23/22 14:18 Lab Results 12/23/22 12/23/22 12/23/22 Range/Units 14:18 14:18 14:18 WBC 13.1 H (3.8-10.6) k/uL RBC 5.20 (3.80-5.40) m/uL Hgb 15.1 (11.4-16.0) gm/dL Hct 47.2 H (34.0-46.0) % MCV 90.7 (80.0-100.0) fL MCH 29.0 (25.0-35.0) pg MCHC 31.9 (31.0-37.0) g/dL RDW 13.9 (11.5-15.5) % Plt Count 304 (150-450) k/uL MPV 8.2 Neutrophils % 77 % Lymphocytes % 18 % Monocytes % 3 % Eosinophils % 1 % Basophils % 0 % Neutrophils # 10.1 H (1.3-7.7) k/uL Lymphocytes # 2.4 (1.0-4.8) k/uL Monocytes # 0.4 (0-1.0) k/uL Eosinophils # 0.1 (0-0.7) k/uL Basophils # 0.1 (0-0.2) k/uL Hypochromasia Slight Sodium 139 (137-145) mmol/L Potassium 4.5 (3.5-5.1) mmol/L Chloride 103 (98-107) mmol/L Carbon Dioxide 29 (22-30) mmol/L Anion Gap 7 mmol/L BUN 13 (7-17) mg/dL Creatinine 0.77 (0.52-1.04) mg/dL Est GFR (CKD-EPI)AfAm >90 (>60 ml/min/1.73 sqM) Est GFR (CKD-EPI)NonAf >90 (>60 ml/min/1.73 sqM) Glucose 103 H (74-99) mg/dL Calcium 9.0 (8.4-10.2) mg/dL NT-Pro-B Natriuret Pep <20 pg/mL Influenza Type A (PCR) Not Detected (Not Detectd) Influenza Type B (PCR) Not Detected (Not Detectd) RSV (PCR) Not Detected (Not Detectd) SARS-CoV-2 (PCR) Not Detected (Not Detectd) Disposition Clinical Impression: Asthma attack Disposition: ADMITTED IP TO THIS HOSP Condition: Fair Referrals: Fransico Albright DO [Primary Care Provider] - 1-2 days Decision Time: 15:33
[2022-12-23 14:35] LABS: African American GFR (CKD) >90 (>60 ml/min/1.73 sqM); Anion Gap 7 mmol/L; Blood Urea Nitrogen 13 mg/dL (7-17); Carbon Dioxide 29 mmol/L (22-30); Chloride 103 mmol/L (98-107); Glucose 103 mg/dL (74-99); Non-African American GFR(CKD) >90 (>60 ml/min/1.73 sqM); Potassium 4.5 mmol/L (3.5-5.1); Sodium 139 mmol/L (137-145)
--- NOTE | 2022-12-23 14:43 | XR ---
EXAMINATION TYPE: XR chest 2V DATE OF EXAM: 12/23/2022 COMPARISON: 08/31/2022 HISTORY: Dyspnea TECHNIQUE: Frontal and lateral views of the chest are obtained. FINDINGS: There is no focal air space opacity, pleural effusion, or pneumothorax seen. The cardiac silhouette size is within normal limits. The osseous structures are intact. IMPRESSION: No acute cardiopulmonary process.
[2022-12-23 14:44] LABS: NT-Pro-B-Type Natriuretic Pept <20 pg/mL
[2022-12-23] MEDS ORDERED: NALOXONE 0.4 MG/ML 1 ML VIAL IVP PRN (15:28)
[2022-12-23] MEDS ORDERED: DEXAMETHASONE SOD PHOSPHATE 10 MG/ML 1 ML VIAL IV STA (15:32)
[2022-12-23] MEDS ORDERED: guaiFENesin-DM 600/30MG 1 EACH TAB.ER.12H PO PRN (16:13)
--- NOTE | 2022-12-23 16:17 | P.HPIM ---
History of Present Illness H&P Date: 12/23/22 Patient is a 37-year-old female with history of asthma and systemic lupus erythematosus, DVT/PE on anticoagulation, ITP status post splenectomy, ADHD, depression presenting with shortness of breath. She claims that her shortness of breath started 3 weeks ago, also accompanied by minimally productive cough, and wheezing. She went to her PCP and continued albuterol treatment as well as Mucinex. She then went to an urgent care clinic 1 week ago, and was treated with Augmentin and oral steroids as well as albuterol. There was no relief, hence, she decided to come to the hospital. She denies any fevers, chills, abdominal pain, nausea, vomiting, urinary or bowel complaints. She denies any new rashes. She denies any sick contacts are travel history. She has been compliant with her medications. She does have central chest pain that is sharp in nature, started after excessive coughing. In the ED, temperature was 98.1, pulse 101, respiratory rate 18, blood pressure 116/71, saturating at 95% on room air. Laboratory and also showed WBC 13.1, hemoglobin 15.1, platelet 304, sodium 139, potassium 4.5, creatinine 0.77, respiratory well panel negative. Chest x-ray personally interpreted, shows no acute process. Patient given IV Decadron, bronchodilators in the ED. She is being admitted for observation for asthma exacerbation. Pertinent positives and negatives as discussed in HPI, a complete review of systems was performed and all other systems are negative. Patient seen and examined at bedside. Vital signs reviewed General: nontoxic, no distress, appears at stated age, morbidly obese Derm: warm, dry Head: atraumatic, normocephalic, symmetric Eyes: EOMI, no lid lag, anicteric sclera, pupils equal round reactive to light ENT: Nose and ears atraumatic Neck: No thyromegaly, supple Mouth: no lip lesion, mucus membranes moist Cardiovascular: S1S2 reg, no murmur, no edema Lungs: Scattered wheezing, no accessory muscle use Abdominal: soft, nontender to palpation, no guarding, no appreciable organomegaly Ext: no gross muscle atrophy, muscle strength muscle strength 5 out of 5 in all 4 extremities, no contractures Neuro: CN II-XII grossly intact Psych: Alert, oriented, appropriate affect Assessment/Plan: Active: Asthma exacerbation Acute bronchitis -Bronchodilators, steroids -Pulmonology consult -Chest x-ray personally interpreted, shows no acute process -Also started on Mucinex DM -Sputum culture, pro-calcitonin ordered Chronic: History of systemic lupus erythematosus DVT/PE ITP status post splenectomy ADHD Depression -Restart all medications reconciled The patient is admitted with an anticipated less than 2 midnight stay as observation status for evaluation of asthma exacerbation. Surrogate decision-maker: Spouse CODE STATUS: Full code DVT prophylaxis: Eliquis Anticipated discharge date: Pending clinical course Anticipated discharge place: Pending clinical course A total of 55 minutes was spent on the care of this complex patient more than 50% of the time was spent in counseling and care coordination. Past Medical History Past Medical History: Asthma, Deep Vein Thrombosis (DVT) Additional Past Medical History / Comment(s): itp, spleen removed 2003, lupus History of Any Multi-Drug Resistant Organisms: None Reported Past Surgical History: Section Additional Past Surgical History / Comment(s): splenectomy mar 2004, oral surgery Past Anesthesia/Blood Transfusion Reactions: No Reported Reaction Past Psychological History: ADD/ADHD, Anxiety, Depression Smoking Status: Never smoker Past Alcohol Use History: None Reported Past Drug Use History: None Reported Medications and Allergies Home Medications Medication Instructions Recorded Confirmed Type Ibuprofen [Motrin Ib] 800 mg PO Q6H PRN 09/24/18 07/27/21 History Citalopram Hydrobromide [CeleXA] 20 mg PO DAILY PRN 07/21/21 07/27/21 History traMADol HCL 50 mg PO TID PRN 07/21/21 07/27/21 History Meclizine [Antivert] 12.5 mg PO TID PRN #12 tablet 07/25/21 07/27/21 Rx Apixaban [Eliquis Starter Pack 5 - 10 mg PO DIRECTED 30 Days 07/29/21 Rx (for VTE)] #1 each Ondansetron Odt [Zofran Odt] 4 mg PO Q8HR PRN #20 tab 07/29/21 Rx methylPREDNISolone [Medrol Dose 4 mg PO DIRECTED #1 packet 08/31/22 Rx Pack] Allergies Allergy/AdvReac Type Severity Reaction Status Date / Time albuterol Allergy Severe Rapid Verified 12/23/22 13:32 Heart Rate & Shortness of Breath acetaminophen [From Tylenol] AdvReac Intermediate Mood Verified 12/23/22 13:32 Swings, See comment morphine AdvReac Intermediate Mood Verified 12/23/22 13:32 Swings, See comment ciprofloxacin [From Cipro] AdvReac Reaction Verified 12/23/22 13:32 with lupus sulfamethoxazole AdvReac Reaction Verified 12/23/22 13:32 [From Bactrim] with lupus trimethoprim [From Bactrim] AdvReac Reaction Verified 12/23/22 13:32 with lupus Physical Exam Vitals: Vital Signs Temp Pulse Resp BP Pulse Ox 12/23/22 15:50 88 12/23/22 15:39 82 12/23/22 14:47 92 18 129/89 95 12/23/22 13:32 98.1 F 101 H 18 116/71 95 Intake and Output 12/23/22 12/23/22 12/23/22 06:59 14:59 22:59 Other: Weight 163.293 kg Results CBC & Chem 7: 12/23/22 14:18 12/23/22 14:18 Labs: Abnormal Lab Results - Last 24 Hours (Table) 12/23/22 12/23/22 Range/Units 14:18 14:18 WBC 13.1 H (3.8-10.6) k/uL Hct 47.2 H (34.0-46.0) % Neutrophils # 10.1 H (1.3-7.7) k/uL Glucose 103 H (74-99) mg/dL
[2022-12-23] MEDS: IPRATROPIUM-ALBUTEROL 3 ML NEB INHALATION SCH ×2 (17:19→21:30)
[2022-12-23 20:50] LABS: Glucose,Whole Blood 141 mg/dL (70-110)
[2022-12-23] MEDS: APIXABAN 5 MG TAB PO SCH (21:31)
[2022-12-23] MEDS: ACETAMINOPHEN TAB 325 MG TAB PO PRN (21:31)
[2022-12-24] MEDS: methylPREDNISolone SOD SUCCI 125 MG/2 ML VIAL IV SCH ×4 (00:29→23:24)
[2022-12-24] MEDS: ACETAMINOPHEN TAB 325 MG TAB PO PRN ×2 (02:00→22:21)
[2022-12-24 06:05] LABS: Glucose,Whole Blood 155 mg/dL (70-110)
[2022-12-24] MEDS: IPRATROPIUM-ALBUTEROL 3 ML NEB INHALATION SCH ×4 (07:54→18:42)
[2022-12-24] MEDS: APIXABAN 5 MG TAB PO SCH ×2 (10:11→22:18)
--- NOTE | 2022-12-24 11:50 | P.CNPUL ---
History of Present Illness Consult date: 12/24/22 Requesting physician: Braxton Fofana Reason for consult: dyspnea, pulmonary embolism Chief complaint: Shortness of breath History of present illness: This is a very pleasant 37-year-old female patient with a known history of systemic lupus erythematous maintained on Plaquenil, morbid obesity, previous pulmonary embolism, DVT anticoagulated with Eliquis, ITP status post splenectomy, attention deficit hyperactivity disorder, asthma. She had a two- week history of increasing shortness of breath, cough and congestion. She was using utilizing her nebulizer on Mucinex and Augmentin as prescribed without much improvement. She presented here to the emergency room yesterday. Chest x- ray showed no acute pulmonary process. White count 13.1. Hemoglobin 15.1. Platelets 304. Sodium 139. Potassium 4.5. Bicarb 29. BUN 13. Creatinine 0.77. Pro-calcitonin 0.03. Influenza screen negative. RSV screen negative. COVID-19 screen negative. She is seen today in consultation on the regular medical floor. Currently sitting up in bed. Awake and alert in no acute distress. Breathing quite a bit better today compared to yesterday. She was initiated on Solu-Medrol, DuoNeb inhalations, continued on Eliquis. Review of Systems REVIEW OF SYSTEMS: CONSTITUTIONAL: Denies any recent significant weight loss or weight gain. EYES: Denies change in vision. EARS, NOSE, MOUTH, THROAT: Denies headaches, denies sore throat. CARDIOVASCULAR: Denies chest pain, palpitations or syncopal episodes. RESPIRATORY: Positive for shortness of breath, cough, congestion no hemoptysis. GASTROINTESTINAL: Denies change in appetite, denies abdominal pain GENITOURINARY: Denies hematuria, denies infections. MUSKULOSKELETAL: Denies pain, denies swelling. INTEGUMENTARY: Denies rash, denies eczema. NEUROLOGICAL: Denies recent memory loss, no recent seizure activity. PSYCHIATRIC: Denies anxiety, denies depression. HEMATOLOGIC/LYMPHATIC: Denies anemia, denies enlarged lymph nodes. Past Medical History Past Medical History: Asthma, Deep Vein Thrombosis (DVT) Additional Past Medical History / Comment(s): itp, lupus, borderline DM History of Any Multi-Drug Resistant Organisms: None Reported Past Surgical History: Section Additional Past Surgical History / Comment(s): splenectomy mar 2004, oral surgery Past Anesthesia/Blood Transfusion Reactions: No Reported Reaction Past Psychological History: ADD/ADHD, Anxiety, Depression Additional Psychological History / Comment(s): states prn celexa Smoking Status: Never smoker Past Alcohol Use History: None Reported Past Drug Use History: None Reported Medications and Allergies Home Medications Medication Instructions Recorded Confirmed Type Citalopram Hydrobromide [CeleXA] 20 mg PO DAILY 07/21/21 12/23/22 History Albuterol Inhaler [Ventolin Hfa 2 puff INHALATION RT-Q6H PRN 12/23/22 12/23/22 History Inhaler] Albuterol Nebulized [Ventolin 2.5 mg INHALATION RT-QID PRN 12/23/22 12/23/22 History Nebulized] Amoxic-Pot Clav 875-125Mg 1 tab PO Q12HR 12/23/22 12/23/22 History [Augmentin 875-125] Apixaban [Eliquis] 2.5 mg PO BID 12/23/22 12/23/22 History Cetirizine HCl [Zyrtec] 10 mg PO DAILY PRN 12/23/22 12/23/22 History Hydroxychloroquine Sulfate 200 mg PO BID 12/23/22 12/23/22 History [Plaquenil] Allergies Allergy/AdvReac Type Severity Reaction Status Date / Time albuterol Allergy Severe Rapid Verified 12/23/22 13:32 Heart Rate & Shortness of Breath acetaminophen [From Tylenol] AdvReac Intermediate Mood Verified 12/23/22 13:32 Swings, See comment morphine AdvReac Intermediate Mood Verified 12/23/22 13:32 Swings, See comment ciprofloxacin [From Cipro] AdvReac Reaction Verified 12/23/22 13:32 with lupus sulfamethoxazole AdvReac Reaction Verified 12/23/22 13:32 [From Bactrim] with lupus trimethoprim [From Bactrim] AdvReac Reaction Verified 12/23/22 13:32 with lupus Physical Exam Vitals: Vital Signs Temp Pulse Pulse Resp BP BP Pulse Ox 12/24/22 11:01 89 12/24/22 10:48 87 12/24/22 08:06 85 12/24/22 07:54 84 12/24/22 07:00 98.0 F 76 16 131/83 94 L 12/24/22 00:29 98.3 F 67 15 133/70 97 12/23/22 21:50 80 12/23/22 21:31 76 12/23/22 18:33 98.1 F 80 16 122/82 98 12/23/22 18:00 86 18 124/69 94 L 12/23/22 16:00 88 18 126/87 94 L 12/23/22 15:50 88 12/23/22 15:39 82 12/23/22 14:47 92 18 129/89 95 12/23/22 13:32 98.1 F 101 H 18 116/71 95 Intake and Output 12/23/22 12/24/22 12/24/22 22:59 06:59 14:59 Other: # Voids 1 1 Weight 163.293 kg GENERAL EXAM: Alert, active, pleasant, morbidly obese 37-year-old female, on room air, comfortable in no apparent distress. HEAD: Normocephalic. EYES: Normal reaction of pupils, equal size. NOSE: Clear with pink turbinates. THROAT: No erythema or exudates. NECK: No masses, no JVD. CHEST: No chest wall deformity. LUNGS: Equal air entry with faint end expiratory wheeze. CVS: S1 and S2 normal with no audible murmur, regular rhythm. ABDOMEN: No hepatosplenomegaly, normal bowel sounds, no guarding or rigidity. SPINE: No scoliosis or deformity SKIN: No rashes CENTRAL NERVOUS SYSTEM: No focal deficits, tone is normal in all 4 extremities. EXTREMITIES: There is no peripheral edema. No clubbing, no cyanosis. Peripheral pulses are intact. Results - Laboratory Findings CBC and BMP: 12/23/22 14:18 12/23/22 14:18 Abnormal lab findings: Abnormal Labs 12/23/22 12/23/22 12/23/22 14:18 14:18 20:49 WBC 13.1 H Hct 47.2 H Neutrophils # 10.1 H Glucose 103 H POC Glucose (mg/dL) 141 H 12/24/22 06:03 WBC Hct Neutrophils # Glucose POC Glucose (mg/dL) 155 H - Diagnostic Findings Chest x-ray: image reviewed Assessment and Plan Assessment: Acute exacerbation of mild intermittent chronic bronchial asthma Systemic lupus erythematous, follows at the [facility], on Plaquenil Morbid obesity, BMI 48.8 kg/m History of previous pulmonary embolism/DVT, maintained on Eliquis History of ITP, status post splenectomy History of ADHD History of anxiety/depression Plan: The patient was seen and evaluated Chest x-ray, labs and medications reviewed Continue Solu-Medrol, DuoNeb inhalations Add Symbicort Procalcitonin within normal limits Stable and on room air Probable discharge in the a.m. We will continue to follow and make further recommendations based on her clinical status I have personally seen and examined the patient, performed the documentation and the assessment and plan as written. Number of minutes spent on the visit: 20.
[2022-12-24 12:06] LABS: Glucose,Whole Blood 171 mg/dL (70-110)
--- NOTE | 2022-12-24 14:36 | P.PN ---
Subjective Progress Note Date: 12/24/22 Hospital Course: 7-year-old female with history of asthma and systemic lupus erythematosus, DVT/PE on anticoagulation, ITP status post splenectomy, ADHD, depression presenting with shortness of breath. In the ED, temperature was 98.1, pulse 101, respiratory rate 18, blood pressure 116/71, saturating at 95% on room air. Laboratory and also showed WBC 13.1, hemoglobin 15.1, platelet 304, sodium 139, potassium 4.5, creatinine 0.77, respiratory well panel negative. Chest x-ray personally interpreted, shows no acute process. Patient given IV Decadron, bronchodilators in the ED. She is being admitted for observation for asthma exacerbation. Subjective: Patient seen and examined at bedside. No acute events overnight. Claims that her shortness of breath and cough has improved. Pertinent positives and negatives as discussed above, a complete review of systems was performed and all other systems are negative. Vitals Signs Reviewed. General: nontoxic, no distress, appears at stated age, morbidly obese Derm: warm, dry Head: atraumatic, normocephalic, symmetric Eyes: EOMI, no lid lag, anicteric sclera, pupils equal round reactive to light ENT: Nose and ears atraumatic Neck: No thyromegaly, supple Mouth: no lip lesion, mucus membranes moist Cardiovascular: S1S2 reg, no murmur, no edema Lungs: Scattered wheezing, no accessory muscle use Abdominal: soft, nontender to palpation, no guarding, no appreciable organomegaly Ext: no gross muscle atrophy, muscle strength muscle strength 5 out of 5 in all 4 extremities, no contractures Neuro: CN II-XII grossly intact Psych: Alert, oriented, appropriate affect Data Reviewed Today: Pertinent Labs: Pro-calcitonin negative, glucose range between 103-171 Imaging: No new imaging Assessment and Plan: Asthma exacerbation Acute bronchitis -Bronchodilators, steroids -Pulmonology note reviewed, Symbicort added likely discharge tomorrow -on Mucinex DM -pro-calcitonin negative Chronic: History of systemic lupus erythematosus DVT/PE ITP status post splenectomy ADHD Depression DVT ppx: Eliquis Code status: Full code Anticipated discharge place: Home Anticipated discharge time: Tomorrow Objective - Vital Signs Vital signs: Vital Signs Temp 98.0 F 12/24/22 07:00 Pulse 80 12/24/22 14:19 Resp 18 12/24/22 14:19 BP 119/77 12/24/22 14:19 Pulse Ox 97 12/24/22 14:19 FiO2 Intake & Output 12/23/22 12/24/22 12/24/22 18:59 06:59 18:59 Weight 163.293 kg Other: # Voids 1 2 - Labs CBC & Chem 7: 12/23/22 14:18 12/23/22 14:18 Labs: Abnormal Lab Results - Last 24 Hours (Table) 12/23/22 12/24/22 12/24/22 Range/Units 20:49 06:03 12:05 POC Glucose (mg/dL) 141 H 155 H 171 H (70-110) mg/dL
[2022-12-24 16:52] LABS: Glucose,Whole Blood 195 mg/dL (70-110)
[2022-12-24] MEDS: SYMBICORT 160-4.5 MCG INHALER INHALATION SCH (18:42)
[2022-12-24 20:27] LABS: Glucose,Whole Blood 201 mg/dL (70-110)
[2022-12-24] MEDS: HYDROXYCHLOROQUINE SULFATE 200 MG TAB PO SCH (22:18)
[2022-12-25 06:16] LABS: Glucose,Whole Blood 139 mg/dL (70-110)
[2022-12-25] MEDS: SYMBICORT 160-4.5 MCG INHALER INHALATION SCH (07:21)
[2022-12-25] MEDS: IPRATROPIUM-ALBUTEROL 3 ML NEB INHALATION SCH ×2 (07:21→11:14)
[2022-12-25 07:29] VITALS: BP 116/79; RESP 17; TEMP 98.1
[2022-12-25] MEDS ORDERED: CITALOPRAM HYDROBROMIDE 20 MG TAB PO SCH (09:00)
[2022-12-25] MEDS: methylPREDNISolone SOD SUCCI 125 MG/2 ML VIAL IV SCH (09:11)
[2022-12-25] MEDS: APIXABAN 5 MG TAB PO SCH (09:11)
[2022-12-25] MEDS: HYDROXYCHLOROQUINE SULFATE 200 MG TAB PO SCH (09:12)
[2022-12-25 11:23] VITALS: PULSE 85
--- NOTE | 2022-12-25 11:28 | P.PN ---
Subjective Progress Note Date: 12/25/22 This is a very pleasant 37-year-old female patient with a known history of systemic lupus erythematous maintained on Plaquenil, morbid obesity, previous pulmonary embolism, DVT anticoagulated with Eliquis, ITP status post splenectomy, attention deficit hyperactivity disorder, asthma. She had a two- week history of increasing shortness of breath, cough and congestion. She was using utilizing her nebulizer on Mucinex and Augmentin as prescribed without much improvement. She presented here to the emergency room yesterday. Chest x- ray showed no acute pulmonary process. White count 13.1. Hemoglobin 15.1. Platelets 304. Sodium 139. Potassium 4.5. Bicarb 29. BUN 13. Creatinine 0.77. Pro-calcitonin 0.03. Influenza screen negative. RSV screen negative. COVID-19 screen negative. She is seen today in consultation on the regular medical floor. Currently sitting up in bed. Awake and alert in no acute distress. Breathing quite a bit better today compared to yesterday. She was initiated on Solu-Medrol, DuoNeb inhalations, continued on Eliquis. The patient is seen today 12/25/2022 in follow-up on the regular medical floor. She is currently sitting up in bed. Awake and alert in no acute distress. No worsening shortness of breath, cough or congestion. She is maintaining good O2 saturations in the mid 90s on room air. Blood sugar 139. He is continued on DuoNeb inhalations, Symbicort, Solu-Medrol. Anticoagulated with Eliquis. Objective - Vital Signs Vital signs: Vital Signs Temp 98.1 F 12/25/22 07:00 Pulse 85 12/25/22 11:23 Resp 17 12/25/22 07:00 BP 116/79 12/25/22 07:00 Pulse Ox 94 L 12/25/22 07:00 FiO2 Intake & Output 12/24/22 12/25/22 12/25/22 18:59 06:59 18:59 Intake Total 236 118 Balance 236 118 Intake: Oral 236 118 Other: # Voids 2 2 - Exam GENERAL EXAM: Alert, morbidly obese 37-year-old female, on room air, comfortable in no apparent distress. HEAD: Normocephalic. EYES: Normal reaction of pupils, equal size. NOSE: Clear with pink turbinates. THROAT: No erythema or exudates. NECK: No masses, no JVD. CHEST: No chest wall deformity. LUNGS: Equal air entry with faint end expiratory wheeze. CVS: S1 and S2 normal with no audible murmur, regular rhythm. ABDOMEN: No hepatosplenomegaly, normal bowel sounds, no guarding or rigidity. SPINE: No scoliosis or deformity SKIN: No rashes CENTRAL NERVOUS SYSTEM: No focal deficits, tone is normal in all 4 extremities. EXTREMITIES: There is no peripheral edema. No clubbing, no cyanosis. Peripheral pulses are intact. - Labs CBC & Chem 7: 12/23/22 14:18 12/23/22 14:18 Labs: Abnormal Lab Results - Last 24 Hours (Table) 12/24/22 12/24/22 12/24/22 Range/Units 12:05 16:51 20:26 POC Glucose (mg/dL) 171 H 195 H 201 H (70-110) mg/dL 12/25/22 Range/Units 06:14 POC Glucose (mg/dL) 139 H (70-110) mg/dL Assessment and Plan Assessment: Acute exacerbation of mild intermittent chronic bronchial asthma Systemic lupus erythematous, follows at the [facility], on Plaquenil Morbid obesity, BMI 48.8 kg/m History of previous pulmonary embolism/DVT, maintained on Eliquis History of ITP, status post splenectomy History of ADHD History of anxiety/depression Plan: The patient was seen and evaluated Medications reviewed Stable and on room air Cleared for discharge from the pulmonary standpoint Continue Symbicort, albuterol HFA Complete a prednisone taper starting at 30 mg daily for 4 days Follow-up in our office in 1 week I have personally seen and examined the patient, performed the documentation and the assessment and plan as written. Number of minutes spent on the visit: 10.
[2022-12-25 12:02] LABS: Glucose,Whole Blood 118 mg/dL (70-110)
--- NOTE | 2022-12-25 12:59 | P.DS ---
Providers Date of admission: 12/23/22 15:29 Expected date of discharge: 12/25/22 Attending physician: Braxton Fofana MD Consults: 12/23/22 15:28 Consult Physician Routine Consulting Provider: Sayra Cordero Consult Reason/Comments: status asthmaticus Do you want consulting provider notified?: Yes Primary care physician: [facility] Course: 37-year-old female with history of asthma and systemic lupus erythematosus, DVT/PE on anticoagulation, ITP status post splenectomy, ADHD, depression presenting with shortness of breath. In the ED, temperature was 98.1, pulse 101, respiratory rate 18, blood pressure 116/71, saturating at 95% on room air. Laboratory and also showed WBC 13.1, hemoglobin 15.1, platelet 304, sodium 139, potassium 4.5, creatinine 0.77, respiratory well panel negative. Chest x-ray personally interpreted, shows no acute process. Patient given IV Decadron, bronchodilators in the ED. She is being admitted for observation for asthma ex acerbation. She was treated with Solu-Medrol and bronchodilators. Pulmonology was consulted and followed the patient during hospitalization. 12/25 Patient was seen and examined this morning. She reports improvement in her breathing since admission. States that she is comfortable being discharged home. She is advised to follow-up with her PCP within 1-2 days of discharge. Follow-up with pulmonology within 1 week of discharge. She does see a physician out of [facility] for her SLE. She has a nebulizer at home with solution. She'll be prescribed Symbicort and a prednisone taper on discharge. Pertinent studies include chest x-ray. General: nontoxic, no distress, appears at stated age, morbidly obese Derm: warm, dry Head: atraumatic, normocephalic, symmetric Eyes: EOMI, no lid lag, anicteric sclera ENT: Nose and ears atraumatic Cardiovascular: S1S2 reg, no murmur, no edema Lungs: Decreased breath sounds bilaterally, no accessory muscle use Ext: no gross muscle atrophy, muscle strength muscle strength 5 out of 5 in all 4 extremities, no contractures Psych: Alert, oriented, appropriate affect Discharge diagnosis: Asthma exacerbation Acute bronchitis This complex discharge took 35 minutes to complete. Patient Condition at Discharge: Stable Plan - Discharge Summary Discharge Rx Participant: Yes New Discharge Prescriptions: New predniSONE See Taper PO DIRECTED #18 tab Budesonide-Formot 160-4.5 Mcg [Symbicort 160-4.5 Mcg Inhaler] 2 puff INHALATION RT-BID #1 each Continue Hydroxychloroquine Sulfate [Plaquenil] 200 mg PO BID Albuterol Nebulized [Ventolin Nebulized] 2.5 mg INHALATION RT-QID PRN PRN Reason: Shortness Of Breath Albuterol Inhaler [Ventolin Hfa Inhaler] 2 puff INHALATION RT-Q6H PRN PRN Reason: Shortness Of Breath Citalopram Hydrobromide [CeleXA] 20 mg PO DAILY Apixaban [Eliquis] 2.5 mg PO BID Cetirizine HCl [Zyrtec] 10 mg PO DAILY PRN PRN Reason: Allergy Symptoms Discontinued Amoxic-Pot Clav 875-125Mg [Augmentin 875-125] 1 tab PO Q12HR Discharge Medication List Citalopram Hydrobromide [CeleXA] 20 mg PO DAILY 07/21/21 [History] Albuterol Inhaler [Ventolin Hfa Inhaler] 2 puff INHALATION RT-Q6H PRN 12/23/22 [History] Albuterol Nebulized [Ventolin Nebulized] 2.5 mg INHALATION RT-QID PRN 12/23/22 [History] Apixaban [Eliquis] 2.5 mg PO BID 12/23/22 [History] Cetirizine HCl [Zyrtec] 10 mg PO DAILY PRN 12/23/22 [History] Hydroxychloroquine Sulfate [Plaquenil] 200 mg PO BID 12/23/22 [History] Budesonide-Formot 160-4.5 Mcg [Symbicort 160-4.5 Mcg Inhaler] 2 puff INHALATION RT-BID #1 each 12/25/22 [Rx] predniSONE See Taper PO DIRECTED #18 tab 12/25/22 [Rx] Follow up Appointment(s)/Referral(s): Tamara Peraza MD [STAFF PHYSICIAN] - 1 Week Fransico Albright DO [Primary Care Provider] - 1-2 days Discharge Disposition: HOME SELF-CARE
== END 2022-12-25 13:45 | disposition home or self-care (01) ==
LOC: EC 13:29 → 6NMEDSUR 15:29
PROVIDERS: ADMIT Student in an Organized Health Care Education/Training Program; ATTEND Student in an Organized Health Care Education/Training Program
DX: J45.22 Mild intermittent asthma with status asthmaticus (principal); J44.0 Chronic obstructive pulmonary disease with (acute) lower respiratory infection; J20.9 Acute bronchitis, unspecified; M32.9 Systemic lupus erythematosus, unspecified; F90.9 Attention-deficit hyperactivity disorder, unspecified type; F31.9 Bipolar disorder, unspecified; E66.01 Morbid (severe) obesity due to excess calories; Z68.42 Body mass index [BMI] 45.0-49.9, adult; F41.9 Anxiety disorder, unspecified; Z86.718 Personal history of other venous thrombosis and embolism; Z86.711 Personal history of pulmonary embolism; Z86.2 Personal history of diseases of the blood and blood-forming organs and certain disorders involving the immune mechanism; Z79.01 Long term (current) use of anticoagulants; Z90.81 Acquired absence of spleen; Z79.899 Other long term (current) drug therapy; Z88.8 Allergy status to other drugs, medicaments and biological substances
CPT/HCPCS: 96376 ×2; 96375; 96374; 99285; 36415; 94640 ×5; 93005; 83880; 80048; 85025; 84145; 87636; 71046; G0378 ×3; J1100; J2930 ×2

== ENCOUNTER 2023-02-06 15:49 | Emergency (ER) | payer OTHER ==
--- NOTE | 2023-02-06 17:10 | XR ---
EXAMINATION TYPE: XR chest 2V DATE OF EXAM: 02/06/2023 4:52 PM CLINICAL INDICATION:Female, 37 years old with history of cough; COMPARISON: Chest radiographs from 12/23/2022 TECHNIQUE: XR chest 2V Frontal and lateral views of the chest. FINDINGS: Lungs/Pleura: There is no evidence of pleural effusion, focal consolidation, or pneumothorax. Pulmonary vascularity: Unremarkable. Heart/mediastinum: Cardiomediastinal silhouette is unremarkable. Musculoskeletal: No acute osseous pathology. Left upper quadrant clips. IMPRESSION: No acute cardiopulmonary disease/process.
[2023-02-06] MEDS ORDERED: SODIUM CHLORIDE 0.9% 1,000 ML IV STA (17:39)
[2023-02-06] MEDS ORDERED: KETOROLAC 15 MG/ML 1 ML VIAL IVP STA (17:39)
--- NOTE | 2023-02-06 17:41 | ED ---
General Adult HPI - General Chief complaint: Upper Respiratory Infection Stated complaint: SOB Source: patient Mode of arrival: ambulatory Limitations: no limitations - History of Present Illness Initial comments: 37-year-old female with a past medical history significant for asthma and lupus on Plaquenil presents to the ED with a chief complaint of URI symptoms. Patient states for the past 2 days has had cough, congestion, runny nose, postnasal drainage, headache, and shortness of breath with exertion. Also notes that she feels as if there is a "elephant on her chest" especially with exertion as well. Reports that she has been using [id number] medications with good relief of symptoms. Does report using both a nebulizer and inhaler with good relief of symptoms as well. Denies fever. Currently denies shortness of breath. No other complaints. - Related Data Home Medications Medication Instructions Recorded Confirmed Citalopram Hydrobromide [CeleXA] 20 mg PO DAILY 07/21/21 12/23/22 Albuterol Inhaler [Ventolin Hfa 2 puff INHALATION RT-Q6H PRN 12/23/22 12/23/22 Inhaler] Albuterol Nebulized [Ventolin 2.5 mg INHALATION RT-QID PRN 12/23/22 12/23/22 Nebulized] Apixaban [Eliquis] 2.5 mg PO BID 12/23/22 12/23/22 Cetirizine HCl [Zyrtec] 10 mg PO DAILY PRN 12/23/22 12/23/22 Hydroxychloroquine Sulfate 200 mg PO BID 12/23/22 12/23/22 [Plaquenil] Previous Rx's Medication Instructions Recorded Budesonide-Formot 160-4.5 Mcg 2 puff INHALATION RT-BID #1 each 12/25/22 [Symbicort 160-4.5 Mcg Inhaler] predniSONE See Taper PO DIRECTED #18 tab 12/25/22 Allergies Allergy/AdvReac Type Severity Reaction Status Date / Time albuterol Allergy Severe Rapid Verified 02/06/23 16:19 Heart Rate & Shortness of Breath acetaminophen [From Tylenol] AdvReac Intermediate Mood Verified 02/06/23 16:19 Swings, See comment morphine AdvReac Intermediate Mood Verified 02/06/23 16:19 Swings, See comment ciprofloxacin [From Cipro] AdvReac Reaction Verified 02/06/23 16:19 with lupus sulfamethoxazole AdvReac Reaction Verified 02/06/23 16:19 [From Bactrim] with lupus trimethoprim [From Bactrim] AdvReac Reaction Verified 02/06/23 16:19 with lupus Review of Systems ROS Statement: Those systems with pertinent positive or pertinent negative responses have been documented in the HPI. ROS Other: All systems not noted in ROS Statement are negative. Past Medical History Past Medical History: Asthma, Deep Vein Thrombosis (DVT) Additional Past Medical History / Comment(s): itp, lupus, borderline DM History of Any Multi-Drug Resistant Organisms: None Reported Past Surgical History: Section Additional Past Surgical History / Comment(s): splenectomy mar 2004, oral surgery Past Anesthesia/Blood Transfusion Reactions: No Reported Reaction Past Psychological History: ADD/ADHD, Anxiety, Depression Smoking Status: Never smoker Past Alcohol Use History: None Reported Past Drug Use History: None Reported General Exam Limitations: no limitations General appearance: alert, obese (Morbidly) Eye exam: Present: normal appearance Neck exam: Present: normal inspection Respiratory exam: Present: normal lung sounds bilaterally Cardiovascular Exam: Present: regular rate, normal rhythm Neurological exam: Present: alert, oriented X3 Skin exam: Present: warm, dry Course Vital Signs 02/06/23 02/06/23 16:15 18:55 Temperature 100.8 F H 98.9 F Pulse Rate 103 H 100 Respiratory 20 18 Rate Blood Pressure 125/84 113/70 O2 Sat by Pulse 96 95 Oximetry Medical Decision Making - Medical Decision Making Was pt. sent in by a medical professional or institution (, PA, SAP TECHNICAL ARCHITECT, urgent care, hospital, or residential...) When possible be specific @ -No Did you speak to anyone other than the patient for history (EMS, parent, family, police, friend...)? What history was obtained from this source @ -No Did you review nursing and triage notes (agree or disagree)? Why? @ -I reviewed and agree with nursing and triage notes Were old charts reviewed (outside hosp., previous admission, EMS record, old EKG, old radiological studies, urgent care reports/EKG's, residential records)? Report findings @ -No old charts were reviewed Differential Diagnosis (chest pain, altered mental status, abdominal pain women, abdominal pain men, vaginal bleeding, weakness, fever, dyspnea, syncope, headache, dizziness, GI bleed, back pain, seizure, CVA, palpatations, mental health, musculoskeletal)? @ -Differential Dyspnea: Coronary syndrome, arrhythmia, tamponade, asthma, COPD, pulmonary embolism, pneumonia, pneumothorax, pulmonary effusion, anaphylaxis, diabetic ketoacidosis, flailed chest, pulmonary contusion, diaphragmatic rupture, anemia, neuromuscular, this is not meant to be an all-inclusive list. Differential Chest Pain: Stable Angina, Unstable Angina, STEMI, NSTEMI Aortic Dissection, Pneumothorax, Musculoskeletal, Esophageal Spasm GERD, Cholecystitis, Pancreatitis, Zoster, this is not meant to be an all-inclusive list. EKG interpreted by me (3pts min.). @ -As above X-rays interpreted by me (1pt min.). @ -Chest x-ray interpreted by me show no evidence of pneumonia or other acute finding. CT interpreted by me (1pt min.). @ -None done U/S interpreted by me (1pt. min.). @ -None done What testing was considered but not performed or refused? (CT, X-rays, U/S, labs)? Why? @ -None What meds were considered but not given or refused? Why? @ -None Did you discuss the management of the patient with other professionals (professionals i.e. , PA, SAP TECHNICAL ARCHITECT, lab, RT, psych nurse, geriatric social worker, vehicle body maker, teacher, senior escrow officer, case filler)? Give summary @ -No Was smoking cessation discussed for >3mins.? @ -No Was critical care preformed (if so, how long)? @ -No Were there social determinants of health that impacted care today? How? (Homelessness, low income, unemployed, alcoholism, drug addiction, transportation, low edu. Level, literacy, decrease access to med. care, correction, rehab)? @ -No Was there de-escalation of care discussed even if they declined (Discuss DNR or withdrawal of care, Hospice)? DNR status @ -No What co-morbidities impacted this encounter? (DM, HTN, Smoking, COPD, CAD, Cancer, CVA, ARF, Chemo, Hep., AIDS, mental health diagnosis, sleep apnea, morbid obesity)? @ -Asthma, SLE Was patient admitted / discharged? Hospital course, mention meds given and route, prescriptions, significant lab abnormalities, going to OR and other pertinent info. @ -Discharge A 37-year-old female presents to the ED with upper respiratory symptoms and feeling of elephant on her chest for the past 2 days. Exam showed lungs were clear without any adventitious lung sounds. Chest x-ray showed no acute pro cess. Laboratory studies including CBC, CMP, UA, troponin 2 negative. EKG here showed a normal sinus rhythm without acute ST-T wave changes. During patient's stay here has not required any breathing treatments. Patient discharged home in stable condition. Discussed return cautions patient verb alizes agreement. Undiagnosed new problem with uncertain prognosis? @ -No Drug Therapy requiring intensive monitoring for toxicity (Heparin, Nitro, Insulin, Cardizem)? @ -No Were any procedures done? @ -No Diagnosis/symptom? @ -Viral URI Acute, or Chronic, or Acute on Chronic? @ -Acute Uncomplicated (without systemic symptoms) or Complicated (systemic symptoms)? @ -Uncomplicated Side effects of treatment? @ -No Exacerbation, Progression, or Severe Exacerbation? @ -No Poses a threat to life or bodily function? How? (Chest pain, [place], [place], pneumonia, PE, COPD, DKA, ARF, appy, cholecystitis, CVA, Diverticulitis, Homicidal, Suicidal, threat to staff... and all critical care pts) @ -No - Lab Data Result diagrams: 02/06/23 22:32 02/06/23 22:32 Lab Results 02/06/23 02/06/23 02/06/23 Range/Units 16:21 18:13 21:06 WBC (3.8-10.6) k/uL RBC (3.80-5.40) m/uL Hgb (11.4-16.0) gm/dL Hct (34.0-46.0) % MCV (80.0-100.0) fL MCH (25.0-35.0) pg MCHC (31.0-37.0) g/dL RDW (11.5-15.5) % Plt Count (150-450) k/uL MPV Neutrophils % % Lymphocytes % % Monocytes % % Eosinophils % % Basophils % % Neutrophils # (1.3-7.7) k/uL Lymphocytes # (1.0-4.8) k/uL Monocytes # (0-1.0) k/uL Eosinophils # (0-0.7) k/uL Basophils # (0-0.2) k/uL Sodium (137-145) mmol/L Potassium (3.5-5.1) mmol/L Chloride (98-107) mmol/L Carbon Dioxide (22-30) mmol/L Anion Gap mmol/L BUN (7-17) mg/dL Creatinine (0.52-1.04) mg/dL Est GFR (CKD-EPI)AfAm (>60 ml/min/1.73 sqM) Est GFR (CKD-EPI)NonAf (>60 ml/min/1.73 sqM) Glucose (74-99) mg/dL Calcium (8.4-10.2) mg/dL Total Bilirubin (0.2-1.3) mg/dL AST (14-36) U/L ALT (4-34) U/L Alkaline Phosphatase (38-126) U/L Troponin I <0.012 <0.012 (0.000-0.034) ng/mL Total Protein (6.3-8.2) g/dL Albumin (3.5-5.0) g/dL Influenza Type A (PCR) Not Detected (Not Detectd) Influenza Type B (PCR) Not Detected (Not Detectd) RSV (PCR) Not Detected (Not Detectd) SARS-CoV-2 (PCR) Not Detected (Not Detectd) 02/06/23 02/06/23 Range/Units 22:32 22:32 WBC 10.6 (3.8-10.6) k/uL RBC 4.90 (3.80-5.40) m/uL Hgb 14.3 (11.4-16.0) gm/dL Hct 43.9 (34.0-46.0) % MCV 89.5 (80.0-100.0) fL MCH 29.1 (25.0-35.0) pg MCHC 32.6 (31.0-37.0) g/dL RDW 13.3 (11.5-15.5) % Plt Count 252 (150-450) k/uL MPV 8.1 Neutrophils % 64 % Lymphocytes % 26 % Monocytes % 6 % Eosinophils % 1 % Basophils % 1 % Neutrophils # 6.8 (1.3-7.7) k/uL Lymphocytes # 2.7 (1.0-4.8) k/uL Monocytes # 0.6 (0-1.0) k/uL Eosinophils # 0.1 (0-0.7) k/uL Basophils # 0.1 (0-0.2) k/uL Sodium 138 (137-145) mmol/L Potassium 4.5 (3.5-5.1) mmol/L Chloride 105 (98-107) mmol/L Carbon Dioxide 23 (22-30) mmol/L Anion Gap 10 mmol/L BUN 9 (7-17) mg/dL Creatinine 0.87 (0.52-1.04) mg/dL Est GFR (CKD-EPI)AfAm >90 (>60 ml/min/1.73 sqM) Est GFR (CKD-EPI)NonAf 86 (>60 ml/min/1.73 sqM) Glucose 80 (74-99) mg/dL Calcium 8.3 L (8.4-10.2) mg/dL Total Bilirubin 0.5 (0.2-1.3) mg/dL AST 37 H (14-36) U/L ALT 24 (4-34) U/L Alkaline Phosphatase 53 (38-126) U/L Troponin I (0.000-0.034) ng/mL Total Protein 6.8 (6.3-8.2) g/dL Albumin 3.7 (3.5-5.0) g/dL Influenza Type A (PCR) (Not Detectd) Influenza Type B (PCR) (Not Detectd) RSV (PCR) (Not Detectd) SARS-CoV-2 (PCR) (Not Detectd) - EKG Data EKG Comments: EKG shows a sinus rhythm without acute ST or T-wave changes. 95 beats for minute. 148 OK interval, QRS 82, QT/QTc 328/381. Disposition Clinical Impression: Viral URI Disposition: HOME SELF-CARE Condition: Good Instructions (If sedation given, give patient instructions): Upper Respiratory Infection (ED) Additional Instructions: Please return to the Emergency Department if symptoms worsen or any other concerns. Is patient prescribed a controlled substance at d/c from ED?: No Referrals: Fransico Albright DO [Primary Care Provider] - 1-2 days Time of Disposition: 23:23
[2023-02-06 19:03] VITALS: BP 113/70; PULSE 100; RESP 18; TEMP 98.9
[2023-02-06 22:48] LABS: Basophils # (A) 0.1 k/uL (0-0.2); Basophils % (A) 1 %; Eosinophils # (A) 0.1 k/uL (0-0.7); Eosinophils % (A) 1 %; HCT 43.9 % (34.0-46.0); HGB 14.3 gm/dL (11.4-16.0); Lymphocytes # (A) 2.7 k/uL (1.0-4.8); Lymphocytes % (A) 26 %; MCH 29.1 pg (25.0-35.0); MCHC 32.6 g/dL (31.0-37.0); MCV 89.5 fL (80.0-100.0); Mean Platelet Volume 8.1; Monocytes # (A) 0.6 k/uL (0-1.0); Monocytes % (A) 6 %; Neutrophils # (A) 6.8 k/uL (1.3-7.7); Neutrophils % (A) 64 %; Platelet Count 252 k/uL (150-450); RDW 13.3 % (11.5-15.5); WBC 10.6 k/uL (3.8-10.6)
[2023-02-06 22:58] LABS: ALT 24 U/L (4-34); African American GFR (CKD) >90 (>60 ml/min/1.73 sqM); Albumin 3.7 g/dL (3.5-5.0); Anion Gap 10 mmol/L; Blood Urea Nitrogen 9 mg/dL (7-17); Calcium 8.3 mg/dL (8.4-10.2); Carbon Dioxide 23 mmol/L (22-30); Chloride 105 mmol/L (98-107); Glucose 80 mg/dL (74-99); Non-African American GFR(CKD) 86 (>60 ml/min/1.73 sqM); Sodium 138 mmol/L (137-145); Total Bilirubin 0.5 mg/dL (0.2-1.3); Total Protein 6.8 g/dL (6.3-8.2)
[2023-02-06 23:13] LABS: AST 37 U/L (14-36); Alkaline Phosphatase 53 U/L (38-126); Potassium 4.5 mmol/L (3.5-5.1)
== END 2023-02-07 00:04 | disposition home or self-care (01) ==
LOC: EC 15:49
DX: J06.9 Acute upper respiratory infection, unspecified (principal); J45.909 Unspecified asthma, uncomplicated; Z86.718 Personal history of other venous thrombosis and embolism; F41.9 Anxiety disorder, unspecified; F32.A Depression, unspecified; Z88.2 Allergy status to sulfonamides; Z88.5 Allergy status to narcotic agent; Z88.8 Allergy status to other drugs, medicaments and biological substances; Z79.01 Long term (current) use of anticoagulants; Z79.899 Other long term (current) drug therapy; Z20.822 Contact with and (suspected) exposure to COVID-19
CPT/HCPCS: 36415; 93005; 80053; 84484; 85025; 87636; 71046; 99285; 96374; 96361; J1885

== ENCOUNTER 2023-07-08 12:22 | Emergency (ER) | payer OTHER ==
[2023-07-08 12:44] LABS: Basophils # (A) 0.1 k/uL (0-0.2); Basophils % (A) 2 %; Eosinophils % (A) 0 %; HCT 47.5 % (34.0-46.0); HGB 15.3 gm/dL (11.4-16.0); Lymphocytes # (A) 2.5 k/uL (1.0-4.8); Lymphocytes % (A) 46 %; MCH 29.1 pg (25.0-35.0); MCHC 32.1 g/dL (31.0-37.0); MCV 90.6 fL (80.0-100.0); Mean Platelet Volume 8.6; Monocytes # (A) 0.4 k/uL (0-1.0); Monocytes % (A) 7 %; Neutrophils # (A) 2.3 k/uL (1.3-7.7); Neutrophils % (A) 42 %; Platelet Count 264 k/uL (150-450); RBC 5.24 m/uL (3.80-5.40); RDW 13.5 % (11.5-15.5); WBC 5.4 k/uL (3.8-10.6)
[2023-07-08 12:55] LABS: ALT 25 U/L (4-34); AST 31 U/L (14-36); African American GFR (CKD) >90 (>60 ml/min/1.73 sqM); Albumin 3.9 g/dL (3.5-5.0); Alkaline Phosphatase 84 U/L (38-126); Anion Gap 8 mmol/L; Blood Urea Nitrogen 12 mg/dL (7-17); Calcium 8.8 mg/dL (8.4-10.2); Carbon Dioxide 24 mmol/L (22-30); Chloride 110 mmol/L (98-107); Glucose 76 mg/dL (74-99); Non-African American GFR(CKD) >90 (>60 ml/min/1.73 sqM); Sodium 142 mmol/L (137-145); Total Bilirubin 0.3 mg/dL (0.2-1.3); Total Protein 7.1 g/dL (6.3-8.2)
[2023-07-08 12:57] LABS: INR 0.9 (<1.2); Prothrombin Time 10.3 sec (10.0-12.5)
[2023-07-08 12:58] LABS: Partial Thromboplastin Time 22.3 sec (22.0-30.0)
--- NOTE | 2023-07-08 13:02 | ED ---
General Adult HPI - General Chief complaint: Chest Pain Stated complaint: Chest Pain,Flu B+/hx of Lupus Time Seen by Provider: 07/08/23 12:25 Source: patient, RN notes reviewed, old records reviewed Mode of arrival: ambulatory Limitations: no limitations - History of Present Illness Initial comments: This is a 38-year-old female who presents to the emergency department with a past medical history significant for lupus and pulmonary embolisms for which she is on Eliquis. Patient states she was diagnosed with influenza B and since Saturday morning at 1 AM she has been having some sharp chest pain in the left that she states radiates to her back. Patient denies any recent fevers that she knows of. Patient states she does have some shortness of breath but she also has asthma. Patient denies any abdominal pain patient has nausea vomiting diarrhea. Patient Nuys any swelling to legs or calf tenderness. - Related Data Home Medications Medication Instructions Recorded Confirmed Albuterol Inhaler [Ventolin Hfa 2 puff INHALATION RT-Q6H PRN 12/23/22 07/08/23 Inhaler] Apixaban [Eliquis] 2.5 mg PO BID 12/23/22 07/08/23 Hydroxychloroquine Sulfate 200 mg PO BID 12/23/22 07/08/23 [Plaquenil] Budesonide/Formoterol Fumarate 1 puff INHALATION RT-BID 07/08/23 07/08/23 [Breyna 160-4.5 Mcg Inhaler] DULoxetine HCL [Cymbalta] 30 mg PO BID 07/08/23 07/08/23 Ipratropium-Albuterol Nebulize 3 ml INHALATION RT-Q4H PRN 07/08/23 07/08/23 [Duoneb 0.5 mg-3 mg/3 ml Soln] predniSONE See Taper PO DIRECTED 07/08/23 07/08/23 Previous Rx's Medication Instructions Recorded Oseltamivir [Tamiflu] 75 mg PO Q12HR #10 cap 07/08/23 Allergies Allergy/AdvReac Type Severity Reaction Status Date / Time acetaminophen [From Tylenol] AdvReac Intermediate Mood Verified 07/08/23 14:24 Swings, See comment morphine AdvReac Intermediate Mood Verified 07/08/23 14:24 Swings, See comment ciprofloxacin [From Cipro] AdvReac Reaction Verified 07/08/23 14:24 with lupus sulfamethoxazole AdvReac Reaction Verified 07/08/23 14:24 [From Bactrim] with lupus trimethoprim [From Bactrim] AdvReac Reaction Verified 07/08/23 14:24 with lupus Review of Systems ROS Statement: Those systems with pertinent positive or pertinent negative responses have been documented in the HPI. ROS Other: All systems not noted in ROS Statement are negative. Past Medical History Past Medical History: Asthma, Diabetes Mellitus, Deep Vein Thrombosis (DVT), Pulmonary Embolus (PE) Additional Past Medical History / Comment(s): itp, lupus, borderline DM History of Any Multi-Drug Resistant Organisms: None Reported Past Surgical History: Section Additional Past Surgical History / Comment(s): splenectomy mar 2004, oral surgery Past Anesthesia/Blood Transfusion Reactions: No Reported Reaction Past Psychological History: ADD/ADHD, Anxiety, Depression Smoking Status: Never smoker Past Alcohol Use History: None Reported Past Drug Use History: None Reported General Exam - General Exam Comments Initial Comments: GENERAL: Patient is well-developed and well-nourished. Patient is nontoxic and well- hydrated and is in mild distress. ENT: Neck is soft and supple. No significant lymphadenopathy is noted. Oropharynx is clear. Moist mucous membranes. Neck has full range of motion without eliciting any pain. EYES: The sclera were anicteric and conjunctiva were pink and moist. Extraocular movements were intact and pupils were equal round and reactive to light. Eyelids were unremarkable. PULMONARY: Unlabored respirations. Good breath sounds bilaterally. No audible rales rhonchi or wheezing was noted. CARDIOVASCULAR: There is a regular rate and rhythm without any murmurs gallops or rubs. ABDOMEN: Soft and nontender with normal bowel sounds. SKIN: Skin is clear with no lesions or rashes and otherwise unremarkable. NEUROLOGIC: Patient is alert and oriented x3. Cranial nerves II through XII are grossly intact. Motor and sensory are also intact. Normal speech, volume and content. Symmetrical smile. MUSCULOSKELETAL: Normal extremities with adequate strength and full range of motion. No calf tenderness. LYMPHATICS: No significant lymphadenopathy is noted PSYCHIATRIC: Normal psychiatric evaluation. Limitations: no limitations Course Vital Signs 07/08/23 07/08/23 12:24 14:54 Temperature 97.9 F Pulse Rate 95 80 Respiratory 18 20 Rate Blood Pressure 138/100 126/85 O2 Sat by Pulse 96 95 Oximetry Medical Decision Making - Medical Decision Making EKG is interpreted by myself read EKG shows a sinus rhythm at 89 bpm parable 149 QRS is 85 QT interval 349 QTc is 396. Patient's EKG shows no ST segment elevation or depression. Was pt. sent in by a medical professional or institution (, PA, RESIDENTIAL INSTRUCTOR, urgent care, hospital, or custodial...) When possible be specific @ -No Did you speak to anyone other than the patient for history (EMS, parent, family, police, friend...)? What history was obtained from this source @ -No Did you review nursing and triage notes (agree or disagree)? Why? @ -I reviewed and agree with nursing and triage notes Were old charts reviewed (outside hosp., previous admission, EMS record, old EKG, old radiological studies, urgent care reports/EKG's, custodial records)? Report findings @ -I reviewed prior charts and prior lab denies patient Differential Diagnosis (chest pain, altered mental status, abdominal pain women, abdominal pain men, vaginal bleeding, weakness, fever, dyspnea, syncope, he adache, dizziness, GI bleed, back pain, seizure, CVA, palpatations, mental health, musculoskeletal)? @ -Differential Chest Pain: Stable Angina, Unstable Angina, STEMI, NSTEMI Aortic Dissection, Pneumothorax, Musculoskeletal, Esophageal Spasm GERD, Cholecystitis, Pancreatitis, Zoster, this is not meant to be an all-inclusive list. EKG interpreted by me (3pts min.). @ -As above X-rays interpreted by me (1pt min.). @ -Chest x-ray shows no acute abnormality CT interpreted by me (1pt min.). @ -None done U/S interpreted by me (1pt. min.). @ -None done What testing was considered but not performed or refused? (CT, X-rays, U/S, labs)? Why? @ -None What meds were considered but not given or refused? Why? @ -None Did you discuss the management of the patient with other professionals (professionals i.e. , SUZETTE, RESIDENTIAL INSTRUCTOR, lab, RT, psych nurse, outreach and education social worker, magistrate judge, teacher, anti air warfare operations officer, protective services case worker)? Give summary @ -No Was smoking cessation discussed for >3mins.? @ -No Was critical care preformed (if so, how long)? @ -No Were there social determinants of health that impacted care today? How? (Homelessness, low income, unemployed, alcoholism, drug addiction, transportation, low edu. Level, literacy, decrease access to med. care, [facility], rehab)? @ -No Was there de-escalation of care discussed even if they declined (Discuss DNR or withdrawal of care, Hospice)? DNR status @ -No What co-morbidities impacted this encounter? (DM, HTN, Smoking, COPD, CAD, Cancer, CVA, ARF, Chemo, Hep., AIDS, mental health diagnosis, sleep apnea, morbid obesity)? @ -None Was patient admitted / discharged? Hospital course, mention meds given and route, prescriptions, significant lab abnormalities, going to OR and other pertinent info. @ -Patient received Toradol and I went back into reevaluate the patient she stated that she was no longer having any pain. Patient states she was tested influenza positive today and it was type B. I spoke with the patient about her chest pain she did not want to stay in the emergency department she want to follow-up as needed. Patient was currently chest pain-free Undiagnosed new problem with uncertain prognosis? @ -No Drug Therapy requiring intensive monitoring for toxicity (Heparin, Nitro, Insulin, Cardizem)? @ -No Were any procedures done? @ -No Diagnosis/symptom? @ -Influenza B Acute, or Chronic, or Acute on Chronic? @ -Acute Uncomplicated (without systemic symptoms) or Complicated (systemic symptoms)? @ -Complicated Side effects of treatment? @ -No Exacerbation, Progression, or Severe Exacerbation? @ -No Poses a threat to life or bodily function? How? (Chest pain, [place], [place], pneumonia, PE, COPD, DKA, ARF, appy, cholecystitis, CVA, Diverticulitis, Homicidal, Suicidal, threat to staff... and all critical care pts) @ -No Diagnosis/symptom? @ -Musculoskeletal chest pain Acute, or Chronic, or Acute on Chronic? @ -Acute Uncomplicated (without systemic symptoms) or Complicated (systemic symptoms)? @ -Uncomplicated Side effects of treatment? @ -None Exacerbation, Progression, or Severe Exacerbation] @ -No Poses a threat to life or bodily function? @ -No - Lab Data Result diagrams: 07/08/23 12:41 07/08/23 12:41 Lab Results 03/03/2207/08/23 07/08/23 Range/Units 12:41 12:41 12:41 WBC 5.4 (3.8-10.6) k/uL RBC 5.24 (3.80-5.40) m/uL Hgb 15.3 (11.4-16.0) gm/dL Hct 47.5 H (34.0-46.0) % MCV 90.6 (80.0-100.0) fL MCH 29.1 (25.0-35.0) pg MCHC 32.1 (31.0-37.0) g/dL RDW 13.5 (11.5-15.5) % Plt Count 264 (150-450) k/uL MPV 8.6 Neutrophils % 42 % Lymphocytes % 46 % Monocytes % 7 % Eosinophils % 0 % Basophils % 2 % Neutrophils # 2.3 (1.3-7.7) k/uL Lymphocytes # 2.5 (1.0-4.8) k/uL Monocytes # 0.4 (0-1.0) k/uL Eosinophils # 0.0 (0-0.7) k/uL Basophils # 0.1 (0-0.2) k/uL PT 10.3 (10.0-12.5) sec INR 0.9 (<1.2) APTT 22.3 (22.0-30.0) sec D-Dimer 0.27 (<0.60) mg/L FEU Sodium 142 (137-145) mmol/L Potassium 4.0 (3.5-5.1) mmol/L Chloride 110 H (98-107) mmol/L Carbon Dioxide 24 (22-30) mmol/L Anion Gap 8 mmol/L BUN 12 (7-17) mg/dL Creatinine 0.71 (0.52-1.04) mg/dL Est GFR (CKD-EPI)AfAm >90 (>60 ml/min/1.73 sqM) Est GFR (CKD-EPI)NonAf >90 (>60 ml/min/1.73 sqM) Glucose 76 (74-99) mg/dL Calcium 8.8 (8.4-10.2) mg/dL Total Bilirubin 0.3 (0.2-1.3) mg/dL AST 31 (14-36) U/L ALT 25 (4-34) U/L Alkaline Phosphatase 84 (38-126) U/L Troponin I (0.000-0.034) ng/mL Total Protein 7.1 (6.3-8.2) g/dL Albumin 3.9 (3.5-5.0) g/dL 07/08/23 Range/Units 12:41 WBC (3.8-10.6) k/uL RBC (3.80-5.40) m/uL Hgb (11.4-16.0) gm/dL Hct (34.0-46.0) % MCV (80.0-100.0) fL MCH (25.0-35.0) pg MCHC (31.0-37.0) g/dL RDW (11.5-15.5) % Plt Count (150-450) k/uL MPV Neutrophils % % Lymphocytes % % Monocytes % % Eosinophils % % Basophils % % Neutrophils # (1.3-7.7) k/uL Lymphocytes # (1.0-4.8) k/uL Monocytes # (0-1.0) k/uL Eosinophils # (0-0.7) k/uL Basophils # (0-0.2) k/uL PT (10.0-12.5) sec INR (<1.2) APTT (22.0-30.0) sec D-Dimer (<0.60) mg/L FEU Sodium (137-145) mmol/L Potassium (3.5-5.1) mmol/L Chloride (98-107) mmol/L Carbon Dioxide (22-30) mmol/L Anion Gap mmol/L BUN (7-17) mg/dL Creatinine (0.52-1.04) mg/dL Est GFR (CKD-EPI)AfAm (>60 ml/min/1.73 sqM) Est GFR (CKD-EPI)NonAf (>60 ml/min/1.73 sqM) Glucose (74-99) mg/dL Calcium (8.4-10.2) mg/dL Total Bilirubin (0.2-1.3) mg/dL AST (14-36) U/L ALT (4-34) U/L Alkaline Phosphatase (38-126) U/L Troponin I <0.012 (0.000-0.034) ng/mL Total Protein (6.3-8.2) g/dL Albumin (3.5-5.0) g/dL Disposition Clinical Impression: Musculoskeletal chest pain, Influenza B Disposition: HOME SELF-CARE Condition: Good Instructions (If sedation given, give patient instructions): Influenza (ED), Chest Pain (ED) Prescriptions: Oseltamivir [Tamiflu] 75 mg PO Q12HR #10 cap Is patient prescribed a controlled substance at d/c from ED?: No Referrals: Fransico Albright DO [Primary Care Provider] - 1-2 days Time of Disposition: 16:09
--- NOTE | 2023-07-08 14:08 | XR ---
EXAMINATION TYPE: XR chest 2V DATE OF EXAM: 07/08/2023 COMPARISON: 02/06/2023 HISTORY: 38 year-old female shortness of breath, difficulty breathing TECHNIQUE: PA and lateral views FINDINGS: Heart normal size. Mild central interstitial and peribronchial thickening. Some strandy density sugge sting atelectasis of the right base. Otherwise, no consolidation or pleural effusion seen. Surgical c lips left upper quadrant. IMPRESSION: Subtle interstitial prominence and peribronchial cuffing. Correlate for bronchitis or asthma. There i s some strandy atelectasis at the right base. Otherwise, no focal infiltrate.
[2023-07-08] MEDS: KETOROLAC 15 MG/ML 1 ML VIAL IVP STA (14:56)
[2023-07-08] MEDS: KETOROLAC 15 MG/ML 1 ML VIAL IM STA (14:57)
[2023-07-08 15:15] VITALS: RESP 20
[2023-07-08 16:52] VITALS: BP 135/97; PULSE 81; TEMP 98.1
== END 2023-07-08 16:24 | disposition home or self-care (01) ==
LOC: EC 12:22
DX: J10.1 Influenza due to other identified influenza virus with other respiratory manifestations (principal); M79.18 Myalgia, other site; E11.9 Type 2 diabetes mellitus without complications; J45.909 Unspecified asthma, uncomplicated; F41.9 Anxiety disorder, unspecified; F32.A Depression, unspecified; Z79.01 Long term (current) use of anticoagulants; Z79.899 Other long term (current) drug therapy; Z88.1 Allergy status to other antibiotic agents; Z88.2 Allergy status to sulfonamides; Z88.5 Allergy status to narcotic agent; Z88.6 Allergy status to analgesic agent; Z88.8 Allergy status to other drugs, medicaments and biological substances
CPT/HCPCS: 36415; 93005; 85379; 80053; 84484; 85025; 85610; 85730; 71046; 99285; 96372; J1885

== ENCOUNTER 2023-09-28 19:51 | Emergency (ER) | payer OTHER ==
[2023-09-28 20:36] VITALS: RESP 20
--- NOTE | 2023-09-28 23:16 | ED ---
General Adult HPI - General Chief complaint: Upper Respiratory Infection Stated complaint: mary, low oxygen Time Seen by Provider: 09/28/23 22:24 Source: patient Mode of arrival: ambulatory Limitations: no limitations - History of Present Illness Initial comments: 38-year-old female with a past medical history significant for asthma and obesity presenting to the ED with complaints of shortness of breath. Patient reports 3 days ago onset of nonproductive cough with some associated shortness of breath. Reports that she saw her PCP who provided her prescription of doxycycline 100 mg twice daily for the next 7 days. Reports no improvement after 1 day so she went to a walk-in clinic which provided her a prescription for 40 mg of prednisone daily for the next 5 days. Despite taking 1 dose, reports no significant improvement of her symptoms prompting presentation to the ED for further evaluation. Patient does report some chills and subjective fe maribel. No chest pain. No other complaints at this time. - Related Data Home Medications Medication Instructions Recorded Confirmed Albuterol Inhaler [Ventolin Hfa 2 puff INHALATION RT-Q6H PRN 12/23/22 07/08/23 Inhaler] Apixaban [Eliquis] 2.5 mg PO BID 12/23/22 07/08/23 Hydroxychloroquine Sulfate 200 mg PO BID 12/23/22 07/08/23 [Plaquenil] Budesonide/Formoterol Fumarate 1 puff INHALATION RT-BID 07/08/23 07/08/23 [Breyna 160-4.5 Mcg Inhaler] DULoxetine HCL [Cymbalta] 30 mg PO BID 07/08/23 07/08/23 Ipratropium-Albuterol Nebulize 3 ml INHALATION RT-Q4H PRN 07/08/23 07/08/23 [Duoneb 0.5 mg-3 mg/3 ml Soln] predniSONE See Taper PO DIRECTED 07/08/23 07/08/23 Previous Rx's Medication Instructions Recorded Oseltamivir [Tamiflu] 75 mg PO Q12HR #10 cap 07/08/23 Allergies Allergy/AdvReac Type Severity Reaction Status Date / Time acetaminophen [From Tylenol] AdvReac Intermediate Mood Verified 09/28/23 20:10 Swings, See comment morphine AdvReac Intermediate Mood Verified 09/28/23 20:10 Swings, See comment ciprofloxacin [From Cipro] AdvReac Reaction Verified 09/28/23 20:10 with lupus sulfamethoxazole AdvReac Reaction Verified 09/28/23 20:10 [From Bactrim] with lupus trimethoprim [From Bactrim] AdvReac Reaction Verified 09/28/23 20:10 with lupus Review of Systems ROS Statement: Those systems with pertinent positive or pertinent negative responses have been documented in the HPI. ROS Other: All systems not noted in ROS Statement are negative. Past Medical History Past Medical History: Asthma, Diabetes Mellitus, Deep Vein Thrombosis (DVT), Pulmonary Embolus (PE) Additional Past Medical History / Comment(s): itp, lupus, borderline DM History of Any Multi-Drug Resistant Organisms: None Reported Past Surgical History: Section Additional Past Surgical History / Comment(s): splenectomy mar 2004, oral surgery Past Anesthesia/Blood Transfusion Reactions: No Reported Reaction Past Psychological History: ADD/ADHD, Anxiety, Depression Smoking Status: Never smoker Past Alcohol Use History: None Reported Past Drug Use History: None Reported General Exam Limitations: no limitations General appearance: alert, in no apparent distress, obese Eye exam: Present: normal appearance Neck exam: Present: normal inspection Respiratory exam: Present: decreased breath sounds. Absent: respiratory distress, accessory muscle use Cardiovascular Exam: Present: regular rate GI/Abdominal exam: Present: soft, normal bowel sounds. Absent: distended, tenderness, guarding, rebound, rigid Neurological exam: Present: alert, oriented X3 Skin exam: Present: warm, dry Course Vital Signs 09/28/23 09/28/23 09/29/23 20:06 23:18 00:22 Temperature 98.5 F Pulse Rate 107 H 88 80 Respiratory 20 20 Rate Blood Pressure 129/73 126/86 O2 Sat by Pulse 95 97 94 L Oximetry Medical Decision Making - Medical Decision Making Was pt. sent in by a medical professional or institution (, PA, WAREHOUSE DRIVER, urgent care, hospital, or skilled nursing...) When possible be specific @ -No Did you speak to anyone other than the patient for history (EMS, parent, family, police, friend...)? What history was obtained from this source @ -No Did you review nursing and triage notes (agree or disagree)? Why? @ -I reviewed and agree with nursing and triage notes Were old charts reviewed (outside hosp., previous admission, EMS record, old E KG, old radiological studies, urgent care reports/EKG's, skilled nursing records)? Report findings @ -No old charts were reviewed Differential Diagnosis (chest pain, altered mental status, abdominal pain women, abdominal pain men, vaginal bleeding, weakness, fever, dyspnea, syncope, headache, dizziness, GI bleed, back pain, seizure, CVA, palpatations, mental health, musculoskeletal)? @ -Differential Dyspnea: Coronary syndrome, arrhythmia, tamponade, asthma, COPD, pulmonary embolism, pneumonia, pneumothorax, pulmonary effusion, anaphylaxis, diabetic ketoacidosis, flailed chest, pulmonary contusion, diaphragmatic rupture, anemia, neuromuscular, this is not meant to be an all-inclusive list. EKG interpreted by me (3pts min.). @ -None X-rays interpreted by me (1pt min.). @ -Chest x-ray interpreted me showing mild cardiomegaly and congestion however no focal airspace disease. CT interpreted by me (1pt min.). @ -None done U/S interpreted by me (1pt. min.). @ -None done What testing was considered but not performed or refused? (CT, X-rays, U/S, labs)? Why? @ -None What meds were considered but not given or refused? Why? @ -None Did you discuss the management of the patient with other professionals (professionals i.e. , PA, WAREHOUSE DRIVER, lab, RT, psych nurse, social sciences lecturer, foley artist, teacher, human resource officer, pillowcase folder)? Give summary @ -No Was smoking cessation discussed for >3mins.? @ -No Was critical care preformed (if so, how long)? @ -No Were there social determinants of health that impacted care today? How? (Homelessness, low income, unemployed, alcoholism, drug addiction, transportation, low edu. Level, literacy, decrease access to med. care, custodial, rehab)? @ -No Was there de-escalation of care discussed even if they declined (Discuss DNR or withdrawal of care, Hospice)? DNR status @ -No What co-morbidities impacted this encounter? (DM, HTN, Smoking, COPD, CAD, Cancer, CVA, ARF, Chemo, Hep., AIDS, mental health diagnosis, sleep apnea, morbid obesity)? @ -Asthma, morbid obesity Was patient admitted / discharged? Hospital course, mention meds given and route, prescriptions, significant lab abnormalities, going to OR and other pertinent info. @ -Discharge 38-year-old female presenting to the ED with complaints of cough, congestion, dyspnea for the past 3 to 4 days. Was provided prescription for doxycycline by her PCP and steroids the following day. On examination decreased breath sounds limiting auscultation however unable to hear crackles or other adventitious lung sounds. Vital signs reviewed. Vital signs stable, afebrile. No hypoxia. Chest x-ray reviewed showing mild cardiomegaly and congestion however at this time doubt that this is an acute CHF exacerbation. Discharged home in stable condition. Advise close follow-up with her primary care provider. Discussed return precautions with patient who verbalized agreement. Undiagnosed new problem with uncertain prognosis? @ -No Drug Therapy requiring intensive monitoring for toxicity (Heparin, Nitro, Insulin, Cardizem)? @ -No Were any procedures done? @ -No Diagnosis/symptom? @ -Upper respiratory infection Acute, or Chronic, or Acute on Chronic? @ -Acute Uncomplicated (without systemic symptoms) or Complicated (systemic symptoms)? @ -Uncomplicated Side effects of treatment? @ -No Exacerbation, Progression, or Severe Exacerbation? @ -No Poses a threat to life or bodily function? How? (Chest pain, [place], [place], pneumonia, PE, COPD, DKA, ARF, appy, cholecystitis, CVA, Diverticulitis, Homicidal, Suicidal, threat to staff... and all critical care pts) @ -No - Lab Data Lab Results 09/28/23 Range/Units 20:07 Influenza Type A (PCR) Not Detected (Not Detectd) Influenza Type B (PCR) Not Detected (Not Detectd) RSV (PCR) Not Detected (Not Detectd) SARS-CoV-2 (PCR) Not Detected (Not Detectd) Disposition Clinical Impression: Upper respiratory infection Disposition: HOME SELF-CARE Condition: Good Instructions (If sedation given, give patient instructions): Upper Respiratory Infection (ED) Additional Instructions: Please return to the Emergency Department if symptoms worsen or any other concerns. Please follow-up with your primary care provider. Ask your primary care provider about receiving an echocardiogram. Continue taking medications as prescribed. Is patient prescribed a controlled substance at d/c from ED?: No Referrals: Fransico Albright DO [Primary Care Provider] - 1-2 days Time of Disposition: 00:32
--- NOTE | 2023-09-28 23:20 | XR ---
EXAMINATION TYPE: XR chest 2V DATE OF EXAM: 09/28/2023 8:18 PM CLINICAL INDICATION:Female, 38 years old with history of Cough; [facility] COMPARISON: 07/08/2023, 03/05/2023 TECHNIQUE: XR chest 2V. Frontal and lateral views of the chest.. FINDINGS: Lines/Tubes/Devices: No indwelling lines are seen. Heart/mediastinum: Heart appears mildly enlarged. Mediastinum appears normal. Pulmonary vascularity: Mild pulmonary vascular congestion. Lungs/Pleura: There is no evidence of pleural effusion, focal consolidation, or pneumothorax. Skinfo lds project over the bilateral chest. Musculoskeletal: No acute osseous abnormality demonstrated in the limits of the exam. Mild degenerat keesha changes. Other findings: None. IMPRESSION: 1. Mild cardiomegaly and congestion. 2. No focal airspace disease.
[2023-09-29 01:04] VITALS: PULSE 80
[2023-09-29 02:03] VITALS: BP 126/83; TEMP 98.2
== END 2023-09-29 01:33 | disposition home or self-care (01) ==
LOC: EC 19:51
DX: J06.9 Acute upper respiratory infection, unspecified (principal); J45.909 Unspecified asthma, uncomplicated; I51.7 Cardiomegaly; E66.01 Morbid (severe) obesity due to excess calories; Z88.1 Allergy status to other antibiotic agents; Z88.2 Allergy status to sulfonamides; Z88.5 Allergy status to narcotic agent; Z88.6 Allergy status to analgesic agent; Z68.42 Body mass index [BMI] 45.0-49.9, adult
CPT/HCPCS: 71046; 87636; 99285

== ENCOUNTER → 2023-10-08 | Outpatient (CLI) | payer BC ==
--- NOTE | 2023-10-08 18:41 | CA ---
Transthoracic Echo Report Name: Alize Tran Age: 38 Gender: F : 1985 Exam Date: 10/08/2023 16:16 Exam Location: [facility] Ht (in): 28.3 Wt (lb): 783 Ordering Physician: Fransico Albright DO Attending/Referring Phys: [employer] Smita Robledo RDCS Procedure CPT: Indications: R06.02 SHORTNESS OF BREATH Cardiac Hx: Technical Quality: Fair Contrast 1: Total Dose (mL): Contrast 2: Total Dose (mL): MEASUREMENTS (Male / Female) Normal Values 2D ECHO LV Diastolic Diameter PLAX 5.5 cm 4.2 - 5.9 / 3.9 - 5.3 cm LV Systolic Diameter PLAX 3.5 cm IVS Diastolic Thickness 1.3 cm 0.6 - 1.0 / 0.6 - 0.9 cm LVPW Diastolic Thickness 0.9 cm 0.6 - 1.0 / 0.6 - 0.9 cm LV Relative Wall Thickness 0.4 M-MODE Aortic Root Diameter MM 3.0 cm LA Systolic Diameter MM 4.5 cm LA Ao Ratio MM 1.5 DOPPLER AV Peak Velocity 109.5 cm/s AV Peak Gradient 4.8 mmHg AV Mean Gradient 2.2 mmHg AV Velocity Time Integral 18.5 cm LVOT Peak Velocity 108.8 cm/s LVOT Peak Gradient 4.7 mmHg LVOT Velocity Time Integral 26.2 cm Mitral E Point Velocity 104.2 cm/s Mitral A Point Velocity 78.7 cm/s Mitral E to A Ratio 1.3 MV Deceleration Time 280.8 ms TR Peak Velocity 230.6 cm/s TR Peak Gradient 21.3 mmHg RVOT Diameter 3.9 cm FINDINGS Left Ventricle Mildly increased left ventricular wall thickness. Left ventricular cavity size normal. Normal left ventricular systolic function with no obvious regional wall motion abnormalities. Left ventricular ejection fraction is estimated at 55-60 %. Right Ventricle Severely increased right ventricular outflow tract diameter. Right ventricular dilatation. Right Atrium Right atrium not well visualized. Left Atrium Mild left atrial dilatation. Mitral Valve No mitral stenosis, regurgitation or prolapse. Aortic Valve No aortic valve stenosis or regurgitation. Tricuspid Valve Structurally normal tricuspid valve. Mild tricuspid regurgitation. Pulmonic Valve Pulmonic valve not well visualized. Pericardium No pericardial effusion. Aorta Normal size aortic root and proximal ascending aorta. CONCLUSIONS LVH with preserved systolic function Enlarged right ventricle, mild TR Previewed by: Dr. Jason Gustafson MD (Electronically Signed) Final Date: 08 October 2023 18:40
== END | disposition home or self-care (01) ==
LOC: RADECHMAIN 16:01
PROVIDERS: ATTEND Family Medicine
DX: I51.7 Cardiomegaly (principal)
CPT/HCPCS: 93306

== ENCOUNTER 2023-10-30 06:28 | Emergency (ER) | payer BC ==
[2023-10-30 06:48] VITALS: TEMP 97.9
[2023-10-30 07:36] LABS: Basophils # (A) 0.1 k/uL (0-0.2); Basophils % (A) 1 %; Eosinophils # (A) 0.3 k/uL (0-0.7); Eosinophils % (A) 2 %; HCT 42.5 % (34.0-46.0); HGB 13.9 gm/dL (11.4-16.0); Lymphocytes # (A) 4.3 k/uL (1.0-4.8); Lymphocytes % (A) 39 %; MCH 29.6 pg (25.0-35.0); MCHC 32.6 g/dL (31.0-37.0); MCV 90.6 fL (80.0-100.0); Mean Platelet Volume 8.8; Monocytes # (A) 0.8 k/uL (0-1.0); Monocytes % (A) 7 %; Neutrophils # (A) 5.5 k/uL (1.3-7.7); Neutrophils % (A) 50 %; Platelet Count 274 k/uL (150-450); RBC 4.69 m/uL (3.80-5.40); RDW 13.9 % (11.5-15.5); WBC 11.1 k/uL (3.8-10.6)
--- NOTE | 2023-10-30 07:43 | ED ---
Chest Pain HPI - General Chief Complaint: Chest Pain Stated Complaint: Chest Pain Time Seen by Provider: 10/30/23 06:49 Source: patient, RN notes reviewed Mode of arrival: ambulatory Limitations: no limitations - History of Present Illness Initial Comments: 38-year-old female presents emergency department with chief complaint of chest discomfort. Patient has been having discomfort for several hours. Patient states that she had no trauma no rashes. Patient states that there is certain movements that make it worse radiates to her left shoulder. She states that she frequently gets chest pain especially after she states she had a recent echocardiogram and was told that she had enlarged right ventricle she states this makes her pain. Patient denies any prior cardiac stents. Patient states that she has had PE and DVT but she is on chronic Eliquis and has had no issues since that. She states she does not have shortness of breath or pain like her prior PEs. Patient denies any abdominal pain no headache or dizziness. - Related Data Home Medications Medication Instructions Recorded Confirmed Albuterol Inhaler [Ventolin Hfa 2 puff INHALATION RT-Q6H PRN 12/23/22 07/08/23 Inhaler] Apixaban [Eliquis] 2.5 mg PO BID 12/23/22 07/08/23 Hydroxychloroquine Sulfate 200 mg PO BID 12/23/22 07/08/23 [Plaquenil] Budesonide/Formoterol Fumarate 1 puff INHALATION RT-BID 07/08/23 07/08/23 [Breyna 160-4.5 Mcg Inhaler] DULoxetine HCL [Cymbalta] 30 mg PO BID 07/08/23 07/08/23 Ipratropium-Albuterol Nebulize 3 ml INHALATION RT-Q4H PRN 07/08/23 07/08/23 [Duoneb 0.5 mg-3 mg/3 ml Soln] predniSONE See Taper PO DIRECTED 07/08/23 07/08/23 Previous Rx's Medication Instructions Recorded Oseltamivir [Tamiflu] 75 mg PO Q12HR #10 cap 07/08/23 Allergies Allergy/AdvReac Type Severity Reaction Status Date / Time acetaminophen [From Tylenol] AdvReac Intermediate Mood Verified 10/30/23 06:48 Swings, See comment morphine AdvReac Intermediate Mood Verified 10/30/23 06:48 Swings, See comment ciprofloxacin [From Cipro] AdvReac Reaction Verified 10/30/23 06:48 with lupus sulfamethoxazole AdvReac Reaction Verified 10/30/23 06:48 [From Bactrim] with lupus trimethoprim [From Bactrim] AdvReac Reaction Verified 10/30/23 06:48 with lupus Review of Systems ROS Statement: Those systems with pertinent positive or pertinent negative responses have been documented in the HPI. ROS Other: All systems not noted in ROS Statement are negative. EKG Findings - EKG Comments: EKG Findings:: EKG performed at 7: 00 sinus rhythm rate of 70 CT 140 QRS 98 QT/QTc 381/403 - EKG Results: EKG: interpreted by [facility] Past Medical History Past Medical History: Asthma, Diabetes Mellitus, Deep Vein Thrombosis (DVT), Pulmonary Embolus (PE) Additional Past Medical History / Comment(s): itp, lupus, borderline DM History of Any Multi-Drug Resistant Organisms: None Reported Past Surgical History: Section Additional Past Surgical History / Comment(s): splenectomy mar 2004, oral surgery Past Anesthesia/Blood Transfusion Reactions: No Reported Reaction Past Psychological History: ADD/ADHD, Anxiety, Depression Smoking Status: Never smoker Past Alcohol Use History: None Reported Past Drug Use History: None Reported General Exam Limitations: no limitations General appearance: alert, in no apparent distress Head exam: Present: atraumatic, normocephalic, normal inspection Eye exam: Present: normal appearance, PERRL, EOMI. Absent: scleral icterus, conjunctival injection, periorbital swelling ENT exam: Present: normal exam, mucous membranes moist Neck exam: Present: normal inspection, full ROM. Absent: tenderness, meningismus, lymphadenopathy Respiratory exam: Present: normal lung sounds bilaterally, chest wall tenderness. Absent: respiratory distress, wheezes, rales, rhonchi, stridor Cardiovascular Exam: Present: regular rate, normal rhythm, normal heart sounds. Absent: systolic murmur, diastolic murmur, rubs, gallop, clicks Neurological exam: Present: alert, oriented X3 Course Vital Signs 10/30/23 06:44 Temperature 97.9 F Pulse Rate 78 Respiratory 18 Rate Blood Pressure 140/97 O2 Sat by Pulse 95 Oximetry Chest Pain MDM - MDM Was pt. sent in by a medical professional or institution (, PA, DATABASE ARCHITECT, urgent care, hospital, or shelter...) When possible be specific @ -No Did you speak to anyone other than the patient for history (EMS, parent, family, police, friend...)? What history was obtained from this source @ -No Did you review nursing and triage notes (agree or disagree)? Why? @ -I reviewed and agree with nursing and triage notes Were old charts reviewed (outside hosp., previous admission, EMS record, old EKG, old radiological studies, urgent care reports/EKG's, shelter records)? Report findings @ -No old charts were reviewed Differential Diagnosis (chest pain, altered mental status, abdominal pain women, abdominal pain men, vaginal bleeding, weakness, fever, dyspnea, syncope, headache, dizziness, GI bleed, back pain, seizure, CVA, palpatations, mental health, musculoskeletal)? @ -Differential Chest Pain: Stable Angina, Unstable Angina, STEMI, NSTEMI Aortic Dissection, Pneumothorax, Musculoskeletal, Esophageal Spasm GERD, Cholecystitis, Pancreatitis, Zoster, this is not meant to be an all-inclusive list. EKG interpreted by me (3pts min.). @ -As above X-rays interpreted by me (1pt min.). @ -Chest x-ray shows possible bronchitis, reactive changes from asthma CT interpreted by me (1pt min.). @ -None done U/S interpreted by me (1pt. min.). @ -None done What testing was considered but not performed or refused? (CT, X-rays, U/S, labs)? Why? @ -None What meds were considered but not given or refused? Why? @ -None Did you discuss the management of the patient with other professionals (professionals i.e. , PA, DATABASE ARCHITECT, lab, RT, psych nurse, social media marketing specialist, jewelry casting model maker apprentice, teacher, national service officer, rn case mgr)? Give summary @ -No Was smoking cessation discussed for >3mins.? @ -No Was critical care preformed (if so, how long)? @ -No Were there social determinants of health that impacted care today? How? (Homelessness, low income, unemployed, alcoholism, drug addiction, transportation, low edu. Level, literacy, decrease access to med. care, group home, rehab)? @ -No Was there de-escalation of care discussed even if they declined (Discuss DNR or withdrawal of care, Hospice)? DNR status @ -No What co-morbidities impacted this encounter? (DM, HTN, Smoking, COPD, CAD, Cancer, CVA, ARF, Chemo, Hep., AIDS, mental health diagnosis, sleep apnea, morbid obesity)? @ -None Was patient admitted / discharged? Hospital course, mention meds given and ro ambler, prescriptions, significant lab abnormalities, going to OR and other pertinent info. @ -Discharged patient did have 4 including labs, EKG and chest x-ray. Patient has reproducible chest wall pain. Patient feels improved at this time will be discharged in stable condition return parameters discussed. Patient agrees with plan of discharge and follow-up. Undiagnosed new problem with uncertain prognosis? @ -No Drug Therapy requiring intensive monitoring for toxicity (Heparin, Nitro, Insulin, Cardizem)? @ -No Were any procedures done? @ -No Diagnosis/symptom? @ -Chest pain, chest wall pain Acute, or Chronic, or Acute on Chronic? @ -Acute Uncomplicated (without systemic symptoms) or Complicated (systemic symptoms)? @ -Uncomplicated Side effects of treatment? @ -No Exacerbation, Progression, or Severe Exacerbation? @ -No Poses a threat to life or bodily function? How? (Chest pain, [place], [place], pneumonia, PE, COPD, DKA, ARF, appy, cholecystitis, CVA, Diverticulitis, Homicidal, Suicidal, threat to staff... and all critical care pts) @ -No Disposition Clinical Impression: Chest pain Disposition: HOME SELF-CARE Condition: Stable Instructions (If sedation given, give patient instructions): Chest Pain (ED) Additional Instructions: Please return to the Emergency Department if symptoms worsen or any other concerns. Is patient prescribed a controlled substance at d/c from ED?: No Referrals: Fransico Albright DO [Primary Care Provider] - 1-2 days Time of Disposition: 08:18
[2023-10-30 07:51] LABS: INR 0.9 (<1.2); Partial Thromboplastin Time 22.5 sec (22.0-30.0)
[2023-10-30 07:54] LABS: ALT 21 U/L (4-34); AST 34 U/L (14-36); African American GFR (CKD) 64 (>60 ml/min/1.73 sqM); Albumin 3.9 g/dL (3.5-5.0); Alkaline Phosphatase 72 U/L (38-126); Anion Gap 8 mmol/L; Blood Urea Nitrogen 22 mg/dL (7-17); Carbon Dioxide 24 mmol/L (22-30); Chloride 107 mmol/L (98-107); Glucose 80 mg/dL (74-99); Magnesium 1.8 mg/dL (1.6-2.3); Non-African American GFR(CKD) 55 (>60 ml/min/1.73 sqM); Potassium 4.3 mmol/L (3.5-5.1); Sodium 139 mmol/L (137-145); Total Bilirubin 0.4 mg/dL (0.2-1.3); Total Protein 6.8 g/dL (6.3-8.2)
--- NOTE | 2023-10-30 08:00 | XR ---
EXAMINATION TYPE: XR chest 2V DATE OF EXAM: 10/30/2023 COMPARISON: 09/28/2023 HISTORY: 38-year-old female with chest pain TECHNIQUE: PA and lateral views FINDINGS: Heart upper limits of normal in size. Minimal central peribronchial cuffing. No consolidation or pleu ral effusion. Some of the streaky perihilar densities show improvement. A couple surgical clips left upper quadrant. IMPRESSION: Minimal central peribronchial cuffing could reflect bronchitis or asthma. Otherwise, no acute process seen.
[2023-10-30 08:03] LABS: NT-Pro-B-Type Natriuretic Pept 30 pg/mL
[2023-10-30 08:33] VITALS: BP 118/85; PULSE 82; RESP 16
== END 2023-10-30 08:33 | disposition home or self-care (01) ==
LOC: EC 06:28
DX: R07.89 Other chest pain (principal); Z88.6 Allergy status to analgesic agent; Z88.5 Allergy status to narcotic agent; Z88.1 Allergy status to other antibiotic agents; Z88.2 Allergy status to sulfonamides
CPT/HCPCS: 36415; 71046; 80053; 83735; 83880; 84484; 85025; 85610; 85730; 93005; 99285

== ENCOUNTER → 2024-02-20 | Outpatient (CLI) | payer OTHER ==
--- NOTE | 2024-02-20 10:45 | CT ---
EXAMINATION TYPE: CT brain wo con DATE OF EXAM: 02/20/2024 COMPARISON: 07/28/2021 HISTORY: Contusion CT DLP: 1231.00 mGycm. Automated Exposure Control for Dose Reduction was Utilized. TECHNIQUE: CT scan of the head is performed without contrast. Findings: The ventricles, basal cisterns and sulci over the convexities are within normal limits and there is n o mass effect or shift of midline structures. No abnormal density is seen throughout the brain parenchyma and there is no acute intra or extra-axia l hemorrhage. The posterior fossa including the brainstem, fourth ventricle and cerebellar pontine angles appear no rmal. Intraorbital contents appear normal and symmetric. Visualized paranasal sinuses and mastoid air cells are well aerated. The calvarium is intact. IMPRESSION: No significant abnormality seen. There is no acute bleed or mass effect. [facility], , 02/20/2024 10:43 AM
--- NOTE | 2024-02-20 10:48 | CT ---
EXAMINATION TYPE: CT facial bones wo con DATE OF EXAM: 02/20/2024 COMPARISON: None HISTORY: Contusion CT DLP: 804.00 mGycm Automated exposure control for dose reduction was used. TECHNIQUE: CT scan of the sinuses is performed without contrast, axial images are obtained, coronal r eformatted images are also reviewed. FINDINGS: The facial bones are intact and there is no fracture. There is minimal mucosal thickening in the inferior aspect of the right maxillary sinus. There is mil d inflammation of the left middle and inferior nasal turbinates. The intraorbital contents are normal and symmetric. The mastoid air cells and middle ear cavities are well aerated. IMPRESSION: No evidence of facial trauma. [facility], , 02/20/2024 10:46 AM
== END | disposition home or self-care (01) ==
LOC: RADCTMAIN 09:57
PROVIDERS: ATTEND Emergency Medicine
CPT/HCPCS: 70450; 70486

== ENCOUNTER → 2024-03-03 | Outpatient (CLI) | payer BC ==
[2024-03-03 14:23] LABS: Appearance,Urine Clear (Clear); Bilirubin,Urine Negative (Negative); Blood,Urine Negative (Negative); Color,Urine Colorless; Glucose,Urine (UA) Negative (Negative); Ketones,Urine Negative (Negative); Leukocyte Esterase,Urine Negative (Negative); Nitrite,Urine Negative (Negative); PH, Urine 6.5 (5.0-8.0); Protein,Urine Negative (Negative); Specific Gravity,Urine 1.004 (1.001-1.035); Urobilinogen,Urine <2.0 mg/dL (<2.0)
[2024-03-03 14:41] LABS: Creatinine,Urine Random 26.5 mg/dL; Protein/Creatinine Ratio,Urine 0.415
[2024-03-03 19:07] LABS: ALT 19 U/L (8-44); AST 20 U/L (13-35); Albumin 3.8 g/dL (3.8-4.9); Albumin/Globulin Ratio 1.46 Ratio (1.60-3.17); Alkaline Phosphatase 76 U/L (41-126); Bilirubin, Conjugated <0.20 mg/dL (0.20-0.40); Bilirubin,Unconjugated >0.10 mg/dL (0.20-1.00); Globulin 2.6 g/dL (1.6-3.3); Total Bilirubin 0.3 mg/dL (0.3-1.2); Total Protein 6.4 g/dL (6.2-8.2)
[2024-03-03 19:10] LABS: Basophils # (A) 0.06 X 10*3/uL (0.00-0.10); Basophils % (A) 0.8 %; Eosinophils # (A) 0.14 X 10*3/uL (0.04-0.35); Eosinophils % (A) 1.9 %; HCT 43.5 % (37.2-46.3); HGB 13.4 g/dL (12.0-15.0); Lymphocytes # (A) 3.09 X 10*3/uL (0.90-5.00); Lymphocytes % (A) 42.6 %; MCH 28.3 pg (27.0-32.0); MCHC 30.8 g/dL (32.0-37.0); MCV 91.8 FL (80.0-97.0); Monocytes % (A) 12.4 %; NRBC Per 100 WBC 0 X 10*3/uL (0.00-0.01); Neutrophils # (A) 3.06 X 10*3/uL (1.80-7.70); Neutrophils % (A) 42.2 %; Platelet Count 325 X 10*3/uL (140-440); RBC 4.74 X 10*6/uL (4.10-5.20); RDW 14.4 % (11.5-14.5); WBC 7.26 X 10*3/uL (4.50-10.00)
[2024-03-03 23:31] LABS: DNA Double-Stranded Negative (Negative)
== END | disposition home or self-care (01) ==
LOC: LABWHC1 11:57
PROVIDERS: ATTEND Internal Medicine
DX: M32.9 Systemic lupus erythematosus, unspecified (principal)
CPT/HCPCS: 36415; 80076; 81003; 82565; 82570; 84156; 85025; 86160; 86225

== ENCOUNTER → 2024-09-04 | Outpatient (CLI) | payer BC ==
--- NOTE | 2024-09-04 11:05 | US ---
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 SIDE PERFORMED: Bilateral FINDINGS: VESSELS IMAGED: Common Femoral Vein Deep Femoral Vein Greater Saphenous Vein * Femoral Vein Popliteal Vein Small Saphenous Vein * Proximal Calf Veins (* superficial vessels) Right Leg: Negative for DVT, Color Doppler imaging shows patency of the vessels. Spectral waveforms are within normal limits. Left Leg: Negative for DVT, Color Doppler imaging shows patency of the vessels. Spectral waveforms a re within normal limits. IMPRESSION: Due to patient's body habitus and subcutaneous edema. No visualized deep venous thrombosis of the bilateral lower extremities. [facility], , 09/04/2024 11:02 AM
== END | disposition home or self-care (01) ==
LOC: RADUSWWP 10:23
PROVIDERS: ATTEND Family Medicine
DX: M32.9 Systemic lupus erythematosus, unspecified (principal); R22.41 Localized swelling, mass and lump, right lower limb; R22.42 Localized swelling, mass and lump, left lower limb
CPT/HCPCS: 93970